=== PATIENT | female | born 1965 | race Caucasian/White ===

== ENCOUNTER 2021-04-16 19:20 | Inpatient (IN) | payer OTHER, SELFPAY ==
[2021-04-16 19:31] VITALS: BP 198/140; PULSE 110; RESP 18; TEMP 37.2; O2SAT 95; BMI 31.2
--- NOTE | 2021-04-16 19:37 | ED_ITS ---
HPI - Psych General: Chief Complaint: Psychiatric Symptoms Stated Complaint: [facility] transport Time Seen by Provider: 04/16/21 19:36 Source: patient and EMS Mode of arrival: EMS Limitations: no limitations History of Present Illness: HPI Narrative: Patient is a 55-year-old female who presents to ED today after being brought by police on a 96-hour hold. Patient tells me her and her got into a verbal altercation earlier this evening. She states she was on the phone with her [id number] who became concerned and called the police. Patient states upon a arrival her had already left the home and states she does not know why the police brought her here. Patient tells me there was no drug or alcohol use. She states she did not make homicidal or suicidal statements. She states she does not know why she is here and wants to go home. Affidavit from police sergeant reviewed and apparently patient was arrested for a DWI earlier today. She was held in [facility] for 7 hours and discharged home. Affidavit states patient immediately began drinking again and contacted her brother telling him vaibhav stating she was going to shoot herself. She made statements that she had keys to her gun safe. She apparently also contacted her supervisor throwing department. Patient is denying all of this and again wants to go home. Associated symptoms: Deny auditory hallucinations, visual hallucinations, depression, homicidal ideation or suicidal ideation Review of Systems Const: Denies: fever(s) or chills Card: Denies: chest pain, palpitations, lightheadedness or syncope Resp: Denies: dyspnea GI: Denies: abdominal pain, nausea, vomiting or diarrhea Skin/Breast: Denies: rash Neuro: Denies: headache(s) Psych: Denies: anxiety, depression, visual hallucinations, auditory hallucinations, suicidal ideation or homicidal ideation Physical Exam Const: COMMON NORMALS: no acute distress, patient oriented x3, no limitations and alert EXAM LIMITATIONS: other limitations (appears slightly intoxicated) GENERAL APPEARANCE: cooperative ORIENTATION/CONSCIOUSNESS: Yes awake, Yes oriented to person, Yes oriented to place and Yes oriented to time Resp: COMMON NORMALS: normal respiratory effort and clear to auscultation bilaterally AUSCULTATION: clear to auscultation bilaterally Cardio: COMMON NORMALS: regular rate and regular rhythm RATE: regular rate RHYTHM: regular rhythm Neuro: JUSTO COMA SCALE: document GCS findings Justo coma scale eye opening: Spontaneous [place] coma scale verbal response: Orientated Justo coma scale motor response: Obey commands Justo coma scale total score: 15 COMMON NORMALS: patient oriented x3, CN's II-XII intact bilaterally, moves all extremities, no focal motor deficits, no sensory deficits noted and gait normal SENSORIUM/ORIENTATION: Yes alert, Yes oriented to person, Yes oriented to place and Yes oriented to time Psych: COMMON NORMALS: mental status grossly normal, Normal thought process present, cooperative, normal affect, speech normal, activity/motor behavior normal, denies hallucinations, denies homicidal ideation and denies suicidal ideation APPEARANCE: Yes grossly normal ATTITUDE: Yes calm ACTIVITY/MOTOR BEHAVIOR: Yes appropriate eye contact SPEECH: Yes normal speech MOOD & AFFECT: Yes euthymic mood THOUGHT PROCESS: Normal thought process present THOUGHT CONTENT: Yes Normal thought content present ATTENTION/CONCENTRATION: Yes attention grossly intact and Yes concentration grossly intact MEMORY/COGNITION: Yes memory grossly intact and Yes cognition grossly intact INSIGHT: Fair insight present (Psych) JUDGEMENT: Fair judgement present (Psych) Course Consultations: Consultation #1: Dr. Campos-accepts patient to NPU. Vital Signs: Vital signs: Vital Signs Temperature 98.9 F 04/16/21 19:31 Pulse Rate 109 H 04/16/21 22:52 Respiratory Rate 18 04/16/21 22:52 Blood Pressure 195/118 04/16/21 22:52 Pulse Oximetry 93 04/16/21 22:52 MDM - Psych MDM Narrative: Medical decision making narrative: Patient here on a 96-hour hold. Labs are fairly unremarkable. She does have an elevated glucose of 212. Most likely patient is an undiagnosed diabetic. She has nonspecific elevations to her LFTs. My suspicion would be for a fatty liver or secondary to her alcohol use-patient does not endorse how frequently she uses. Patient was very hypertensive upon arrival at 198/140. She states she does take BP medications and took them this morning. Blood pressure down to 178/101 during my examination. She is completely asymptomatic. There is no need to treat this acutely from the ED. Recommend BP log and follow-up with primary care so they may adjust medications accordingly. Case discussed with Dr. Campos who will admit to NPU. Lab Data: Labs: Lab Results 04/16/21 04/16/21 Range/Units 21:07 21:07 WBC 7.0 (4.0-10.0) 10^3/ uL RBC 4.83 (4.1-5.3) 10^6/u L Hgb 15.4 H (11.5-15.3) g/dL Hct 47.4 H (37.0-47.0) % MCV 98.1 (81-99) fL MCH 31.9 (28.0-34.0) pg MCHC 32.5 (30.0-36.0) g/dL RDW 13.8 (12.1-15.1) % Plt Count 270 (130-400) 10^3/c mm MPV 9.7 (7.4-10.4) fL Neut % (Auto) 50.9 % Lymph % (Auto) 39.7 % Cross % (Auto) 6.7 % Eos % (Auto) 0.4 % Baso % (Auto) 1.0 % Neut # (Auto) 3.54 (1.8-7.7) 10^3/u L Lymph # (Auto) 2.8 (0.8-4.8) 10^3/u L Cross # (Auto) 0.5 (0.2-0.9) 10^3/u L Eos # (Auto) 0.0 (0.0-0.8) 10^3/u L Baso # (Auto) 0.1 (0.0-0.1) 10^3/u L Nucleated RBC % (a uto) 0 % Nucleated RBCs # 0.0 /100WBC Sodium 139 (136-145) mmol/L Potassium 3.7 (3.5-5.1) mmol/L Chloride 101 (98-107) mmol/L Carbon Dioxide 23 (22-29) mmol/L Anion Gap 18.7 (5-19) BUN 12 (6-20) mg/dL Creatinine 0.4 L (0.5-0.9) mg/dL GFR Calculation 165.7 H (90-130) mL/min Glucose 212 H (65-115) mg/dL Calculated Osmolal ity 294 (285-295) mOsm/k g Calcium 8.2 L (8.5-10.5) mg/dL Total Bilirubin 0.2 (0.15-1.2) mg/dL AST 70 H (0-32) U/L ALT 75 H (0-33) U/L Alkaline Phosphata se 99 (35-105) IU/L Total Protein 7.0 (6.6-8.7) g/dL Albumin 3.8 (3.5-5.2) g/dL Globulin 3.2 (1.3-4.6) g/dL Salicylates < 0.3 L (3-10) mg/dL Acetaminophen < 5.0 L (10-30) ug/mL Ethyl Alcohol 219 H (0-10) mg/dL Discharge Plan Discharge Patient Disposition: Admitted As Inpatient Admit Provider: Todd Campos Clinical Impression: Suicidal ideation, Involuntary commitment, Acute alcohol intoxication, Hypertension, uncontrolled Condition: Stable Coding Level of Care Code ED Child And Family Services Worker for Elida Fwkirill Exam Detailed
[2021-04-16 21:17] LABS: Basophils # 0.1 10^3/uL (0.0-0.1); Eosinophils % 0.4 %; Hematocrit 47.4 % (37.0-47.0); Hemoglobin 15.4 g/dL (11.5-15.3); Lymphocytes # 2.8 10^3/uL (0.8-4.8); Lymphocytes % 39.7 %; Mean Corpuscular HGB Conc 32.5 g/dL (30.0-36.0); Mean Corpuscular Hemoglobin 31.9 pg (28.0-34.0); Mean Corpuscular Volume 98.1 fL (81-99); Mean Platelet Volume 9.7 fL (7.4-10.4); Monocytes # 0.5 10^3/uL (0.2-0.9); Monocytes % 6.7 %; Neutrophils # 3.54 10^3/uL (1.8-7.7); Neutrophils % 50.9 %; Nucleated Red Blood Cells % 0 %; Platelet Count 270 10^3/cmm (130-400); Red Blood Count 4.83 10^6/uL (4.1-5.3); Red Cell Distribution Width 13.8 % (12.1-15.1)
[2021-04-16 21:37] LABS: Alanine Aminotransferase 75 U/L (0-33); Albumin Level 3.8 g/dL (3.5-5.2); Alcohol Level 219 mg/dL (0-10); Alkaline Phosphatase 99 IU/L (35-105); Anion Gap 18.7 (5-19); Aspartate Amino Transferase 70 U/L (0-32); Blood Urea Nitrogen 12 mg/dL (6-20); Calcium 8.2 mg/dL (8.5-10.5); Carbon Dioxide 23 mmol/L (22-29); Chloride 101 mmol/L (98-107); Globulin 3.2 g/dL (1.3-4.6); Glomerular Filtration Rate 165.7 mL/min (90-130); Glucose 212 mg/dL (65-115); Osmolality Calculated 294 mOsm/kg (285-295); Potassium 3.7 mmol/L (3.5-5.1); Sodium 139 mmol/L (136-145); Total Bilirubin 0.2 mg/dL (0.15-1.2)
[2021-04-16 21:39] LABS: Acetaminophen < 5.0 ug/mL (10-30); Salicylate < 0.3 mg/dL (3-10)
[2021-04-16 21:53] VITALS: BP 178/101; PULSE 97; RESP 18
[2021-04-16] MEDS: ibuprofen 200 mg Tablet 400 MG PO (22:09)
[2021-04-16 22:37] VITALS: PULSE 100; RESP 18; O2SAT 99
[2021-04-16 22:52] VITALS: BP 195/118; PULSE 109; RESP 18; O2SAT 93
[2021-04-16 23:01] VITALS: BP 193/143; PULSE 106; RESP 18; TEMP 36.5; O2SAT 93
[2021-04-16] MEDS: hyDROXYzine 25 mg Capsule 50 MG PO (23:51)
[2021-04-16] MEDS: trazodone 50 mg Tablet PO (23:51)
[2021-04-17 01:06] LABS: Amphetamines Screen Urine Negative (Negative); Barbiturates Screen Urine Negative (Negative); Benzodiazepines Screen Urine Negative (Negative); Cocaine Screen Urine Negative (Negative); Opiate Screen Urine Negative (Negative); PCP Screen Urine Negative (Negative); THC Screen Urine Negative (Negative)
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
[2021-04-17 06:00] VITALS: BP 200/104; PULSE 109; RESP 19; TEMP 37.5; O2SAT 93
[2021-04-17] MEDS: pantoprazole DR 40 mg Tablet PO (08:22)
[2021-04-17] MEDS: fluoxetine 10 mg Capsule PO (08:22)
[2021-04-17] MEDS: buPROPion SR (12 HR) 150 mg Tablet PO (08:22)
--- NOTE | 2021-04-17 08:24 | PC.NUTR ---
Nutrition assessment triggered d/t MSt score of 4. Possible weight loss. Pt currently on Cardiac diet r/t HTN. Glucose 212 noted, may benefit from consistent carb guidelines in diet, as well as nutrition education when appropriate. Recommend monitoring glucose daily, and obtaining HgbA1C if appropriate to evaluate or DM. See full RD assessment for further details.
--- NOTE | 2021-04-17 09:31 | P.HP_ITS ---
Providers/Chief Complaint Admitting Physician: Todd Campos MD Primary Care Provider: Jolynn Kauffman APRN Chief Complaint: [facility] transport HPI NPU History of Present Illness Isabel Machado is a 55 year old female who was brought by police on a 96-hour hold to the ED yesterday evening after it was reported she made serious suicidal statements to several different people. The ED note from last night states: Patient is a 55-year-old female who presents to ED today after being brought by police on a 96-hour hold. Patient tells me her and her got into a verbal altercation earlier this evening. She states she was on the phone with her [id number] who became concerned and called the police. Patient states upon a arrival her had already left the home and states she does not know why the police brought her here. Patient tells me there was no drug or alcohol use. She states she did not make homicidal or suicidal statements. She states she does not know why she is here and wants to go home. Clifford from police captain reviewed and apparently patient was arrested for a DWI earlier today. She was held in halfway for 7 hours and discharged home. Affidavit states patient immediately began drinking again and contacted her brother telling him vaibhav stating she was going to shoot herself. She made statements that she had keys to her gun safe. She apparently also contacted her data technician. Patient is denying all of this and again wants to go home. As she did in the ED, the patient denies all of what is reported in the affidavit and 96-hour hold petition, and during this interview she minimized psychiatric symptoms. She does admit to having been depressed recently and was started on Prozac and Wellbutrin by her primary care physician 2 weeks ago. She says this is the first time she has taken psychiatric medications. She has no history of psychiatric hospitalization or therapy either. Though she describes having been depressed, she denies any recent history of insomnia or hypersomnia, appetite changes, poor energy, motivation, concentration, or feelings of helplessness, hopelessness, or worthlessness. She says she has not ever had passive or active suicidal ideation. She says she has a lot to live for, including her friends, children, and 5 grandchildren. She denies ever having had psychotic symptoms. She denies auditory and visual hallucinations and paranoid delusions. The patient says she has been trying not to drink, and reports being sober from November through February of this year. She says alcohol is something to turn to because I am depressed. She says she does not want to rely on alcohol to solve her problems. She says she drank 6 beers and 4 shots of whiskey either yest erday or the day before. She is reluctant to discuss quantity of alcohol use during other time periods. She says she has had alcohol withdrawal symptoms in the past that included shaking and sweating, but denies delirium tremens symptoms such as seizures or hallucinations. She denies any history of drug use. She does smoke 1/2 pack of cigarettes per day. The patient does say that she got a DWI yesterday. I ask the circumstances, she said I just ran out to the store for a minute. She says she has a court date on April 28, 2021. She says she got her first DUI a number of years ago, and this is the second. Psychiatric history: As above. Substance use history: As above. Family history: Patient denies mental health or addiction issues on either side of the family and denies suicide attempts or completions in the family. She says her mother has had breast cancer. Psychosocial history: The patient says she was born in [facility] but graduated from high school in [place], where she had gone to live with her older sister. She now lives in [place], [place] with her of 38 years. She says they have 2 grown kids. 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 Her works for [employer] engines. Legal history: DWI Medical history: Hypertension: She says she was recently switched from lisinopril to Cardura, which has been helpful in controlling her blood pressure. Her doctor has noted that she has hyperglycemia, which she is trying to control with diet at present. Review of Systems General: Reports: 10 or more systems reviewed and unremarkable except in HPI and below Meds NPU Home Medications Medication Instructions Recorded Confirmed Last Taken Type apixaban [Eliquis] 5 mg PO BID 04/17/21 04/17/21 Unknown History bupropion HCl 150 mg PO BID 04/17/21 04/17/21 Unknown History diltiazem HCl 180 mg PO DAILY 04/17/21 04/17/21 Unknown History fluoxetine 10 mg PO DAILY 04/17/21 04/17/21 Unknown History omeprazole 20 mg PO DAILY 04/17/21 04/17/21 Unknown History Allergies Allergy/AdvReac Type Severity Reaction Status Date / Time No Known Allergies Allergy Verified 04/16/21 19:35 Mental Status Exam MSE Comments: I met with the patient in in her room. She was wearing scrubs and did not appear to have performed personal hygiene this morning yet. She was guarded with the exam. She was somewhat agitated, irritated about being in the hospital, minimized any difficulty whatsoever, and made poor eye contact. She had psychomotor agitation no tremor. Speech is at a regular rate and rhythm, normal volume, not pressured Alert, oriented to person, place, time (within 2 days), situation Attention and concentration were intact. Able to spell the word WORLD correctly forwards and backwards. Memory is fairly intact. Remembers 3/3 words immediately and 2/3 at 3 minutes. She knows the names of the past 3 presidents. She says that her mood is fine, and denies feeling depressed. This is in spite of the fact that she was recently started on antidepressants and does not feel they have taken effect yet.. Affect is irritable and anxious. Thought process, linear but with inconsistencies Thought content: Denies auditory visual hallucinations, no delusions noted. Denies suicidal and homicidal ideation. Insight and judgment appear to be limited by minimizing symptoms Vitals/I&O/Wt Last Vital Signs Temp 99.5 F 04/17/21 06:00 Pulse 109 H 04/17/21 06:00 Resp 19 H 04/17/21 06:00 BP 200/104 04/17/21 06:00 Pulse Ox 93 04/17/21 06:00 Weight last 48 hrs Weight 72.575 kg Data NPU : 04/16/21 21:07 04/16/21 21:07 A&P Assessment and plan (1) Suicidal ideation: Status: Acute (2) Depression: Status: Acute (3) Involuntary commitment: Status: Acute (4) Acute alcohol intoxication: Status: Acute Qualifiers: Complication of substance-induced condition: uncomplicated Qualified Code(s): F10.920 - Alcohol use, unspecified with intoxication, uncomplicated (5) Hypertension, uncontrolled: Status: Acute Additional A&P Information Isabel Machado is a 55 year old female who was brought by police on a 96-hour hold to the ED yesterday evening after it was reported she made serious suicidal statements to several different people. The ED note from last night states: Patient is a 55-year-old female who presents to ED today after being brought by police on a 96-hour hold. Patient tells me her and her got into a verbal altercation earlier this evening. It is reported that she contacted her brother telling him goodbye and that she was going to shoot herself, and reportedly made similar statements to her data technician. She denies the above and min imizes all symptoms, even though she received a DWI yesterday. 1. Continue current medication. 2. Continue every 15 minute checks for safety. 3. Encourage individual, group and milieu therapies. 4. Encourage sober living treatment after discharge at the highest level of care to which he is willing to commit. 5. Obtain collateral information from family about the patient's behavior prior to admission, to include in disposition decision make. Involuntary Hold Information 96 Hour Hold: 96 Hour Involuntary Admission: Yes 96 Hour Hold Ending Date: 04/22/21 96 Hour Hold Ending Time: 22:40 Attestations NPU Medical Necessity Statement*: Psychiatric hospitalization is medically necessary to prevent access to lethal means, to reevaluate medication, and to coordinate a safe discharge. Patient will be in the hospital for over 2 midnights. Likely length of stay is 3 to 5 days. Coding Level of Care Code Acute Furnace Erector for [facility] Diagnoses Suicidal ideation R45.851 Depression F32.9 Involuntary commitment Z04.6 Acute alcohol intoxication F10.920 Complication of substance-induced condition: uncomplicated Hypertension, uncontrolled I10
[2021-04-17] MEDS: acetaminophen 325 mg Tablet 650 MG PO (11:48)
--- NOTE | 2021-04-17 12:03 | PM.NDC ---
Diagnoses at Discharge Discharge Diagnosis (1) Suicidal ideation: Status: Resolved (2) Depression: Status: Acute (3) Involuntary commitment: Status: Resolved (4) Acute alcohol intoxication: Status: Resolved Qualifiers: Complication of substance-induced condition: uncomplicated Qualified Code(s): F10.920 - Alcohol use, unspecified with intoxication, uncomplicated (5) Hypertension, uncontrolled: Status: Acute Reason for Visit Reason for Visit: [facility] transport Brief History: Isabel Machado is a 55 year old female who was brought by police on a 96-hour hold to the ED yesterday evening after it was reported she made serious suicidal statements to several different people. The ED note from last night states: Patient is a 55-year-old female who presents to ED today after being brought by police on a 96-hour hold. Patient tells me her and her got into a verbal altercation earlier this evening. She states she was on the phone with her [id number] who became concerned and called the police. Patient states upon a arrival her had already left the home and states she does not know why the police brought her here. Patient tells me there was no drug or alcohol use. She states she did not make homicidal or suicidal statements. She states she does not know why she is here and wants to go home. Clifford from police communications dispatcher reviewed and apparently patient was arrested for a DWI earlier today. She was held in skilled nursing for 7 hours and discharged home. Affidavit states patient immediately began drinking again and contacted her brother telling him gagee stating she was going to shoot herself. She made statements that she had keys to her gun safe. She apparently also contacted her cinder crusher operator. Patient is denying all of this and again wants to go home. As she did in the ED, the patient denies all of what is reported in the affidavit and 96-hour hold petition, and during this interview she minimized psychiatric symptoms. She does admit to having been depressed recently and was started on Prozac and Wellbutrin by her primary care physician 2 weeks ago. She says this is the first time she has taken psychiatric medications. She has no history of psychiatric hospitalization or therapy either. Though she describes having been depressed, she denies any recent history of insomnia or hypersomnia, appetite changes, poor energy, motivation, concentration, or feelings of helplessness, hopelessness, or worthlessness. She says she has not ever had passive or active suicidal ideation. She says she has a lot to live for, including her friends, children, and 5 grandchildren. She denies ever having had psychotic symptoms. She denies auditory and visual hallucinations and paranoid delusions. The patient says she has been trying not to drink, and reports being sober from November through February of this year. She says alcohol is something to turn to because I am depressed. She says she does not want to rely on alcohol to solve her problems. She says she drank 6 beers and 4 shots of whiskey either yesterday or the day before. She is reluctant to discuss quantity of alcohol use during other time periods. She says she has had alcohol withdrawal symptoms in the past that included shaking and sweating, but denies delirium tremens symptoms such as seizures or hallucinations. She denies any history of drug use. She does smoke 1/2 pack of cigarettes per day. The patient does say that she got a DWI yesterday. I ask the circumstances, she said I just ran out to the store for a minute. She says she has a court date on April 28, 2021. She says she got her first DUI a number of years ago, and this is the second. Hospital Course Hospital Course She was admitted to the neuropsychiatric unit for definitive treatment of these issues. On the unit she slowly acclimated to the individual, group and milieu therapies. There were some mild psychotic symptoms present initially which resolved with the medication being restarted. She was receptive to treatment team recommendations and showed modest improvement and was able to contract for safety prior to discharge. During the hospitalization, patient had routine laboratory studies which were within normal limits except for few outliers. Additionally there was a general medical evaluation which was also within normal limits and revealed no new acute processes. Discharge Summary: At the time of discharge, psychosis and lethality were denied. Mood and anxiety were well managed. Patient endorsed a plan to avoid all drugs of abuse and follow-up with the aftercare recommendations of the treatment team. Patient was evaluated and deemed to be absent credible lethality, and had achieved the maximum benefit from an inpatient hospitalization, so was discharged. Involuntary Hold Information 96 Hour Hold: 96 Hour Involuntary Admission: Yes 96 Hour Hold Ending Date: 04/22/21 96 Hour Hold Ending Time: 22:40 Mental Status Exam MSE Comments: The patient made good eye contact and was cooperative and open to the exam. No psychomotor agitation or retardation. Speech was had a regular rate and rhythm without pressure. Alert and oriented to person, place, time, and situation. Attention and concentration were intact to exam Memory was fairly good to exam. Mood is improved without depression and anxiety. Affect is brighter. Thought process: Logical and goal directed. No racing thoughts or flight of ideas. Thought content: Denies auditory and visual hallucinations. There are no delusions noted. No suicidal or homicidal ideation. Has future-oriented goals. Insight and judgment are improved and adequate. Discharge Data Data Completed and Pending: Labs from last 24 hours 04/16/21 04/16/21 04/16/21 21:07 21:07 19:45 WBC 7.0 RBC 4.83 Hgb 15.4 H Hct 47.4 H MCV 98.1 MCH 31.9 MCHC 32.5 RDW 13.8 Plt Count 270 MPV 9.7 Neut % (Auto) 50.9 Lymph % (Auto) 39.7 [place] % (Auto) 6.7 Eos % (Auto) 0.4 Baso % (Auto) 1.0 Neut # (Auto) 3.54 Lymph # (Auto) 2.8 [place] # (Auto) 0.5 Eos # (Auto) 0.0 Baso # (Auto) 0.1 Nucleated RBC % (a uto) 0 Nucleated RBCs # 0.0 Sodium 139 Potassium 3.7 Chloride 101 Carbon Dioxide 23 Anion Gap 18.7 BUN 12 Creatinine 0.4 L GFR Calculation 165.7 H Glucose 212 H Calculated Osmolal ity 294 Calcium 8.2 L Total Bilirubin 0.2 AST 70 H ALT 75 H Alkaline Phosphata se 99 Total Protein 7.0 Albumin 3.8 Globulin 3.2 Salicylates < 0.3 L Urine Opiates Scre en Negative Acetaminophen < 5.0 L Ur Barbiturates Sc reen Negative Ur Phencyclidine S crn Negative Ur Amphetamines Sc reen Negative U Benzodiazepines Scrn Negative Urine Cocaine Scre en Negative U Marijuana (THC) Screen Negative Ethyl Alcohol 219 H Vitals: Last Vital Signs Temp 99.5 F 04/17/21 06:00 Pulse 109 H 04/17/21 06:00 Resp 19 H 04/17/21 06:00 BP 200/104 04/17/21 06:00 Pulse Ox 93 04/17/21 06:00 Discharge Plan Discharge Patient Disposition: Home Condition: Stable Prescriptions: Continued bupropion HCl 150 mg Tablet Sustained-Release 12 Hr 150 mg PO BID RF: 0 fluoxetine 10 mg Capsule 10 mg PO DAILY RF: 0 Eliquis 5 mg Tablet 5 mg PO BID RF: 0 omeprazole 20 mg Capsule,Delayed Release(Dr/Ec) 20 mg PO DAILY RF: 0 diltiazem HCl 180 mg Tablet Extended Release 24 Hr 180 mg PO DAILY RF: 0 Discharge Orders: Discharge Order (Routine); Ordered 04/17/21 Ordered By: Todd Campos Referrals: Jolynn Kauffman APRN [Primary Care Provider] - Discharge Diet: Advance as tolerated and Usual diet Discharge Activity: Resume usual activity Patient Instructions: Opioid Safety Discharge Attestations NPU Time Spent in Discharge Care*: less than 30 min Specific Discharge Activities: Specific discharge activities: educating patient, educating and/or supporting family/caregiver and discussing with pcp/other providers Status at Discharge: Cognitive status at discharge: cognitively intact, Behavioral status at discharge: can be uncooperative, Functional status at discharge: independent ambulation Overall status at discharge: patient is back to baseline Coding Level of Care Code Acute Chg FW DC note Diagnoses Suicidal ideation R45.851 Depression F32.9 Involuntary commitment Z04.6 Acute alcohol intoxication F10.920 Complication of substance-induced condition: uncomplicated Hypertension, uncontrolled I10
[2021-04-17 12:15] VITALS: BP 200/104; PULSE 109; RESP 19; TEMP 37.5; O2SAT 93
== END 2021-04-17 13:35 | disposition home or self-care (01) | DRG 881 ==
LOC: ER 22:39 → NP 04-17 01:06
PROVIDERS: Admitting Provider Psychiatry & Neurology Child & Adolescent Psychiatry; Emergency Provider Physician Assistant; PCP Nurse Practitioner Family; Visit Provider Psychiatry & Neurology Child & Adolescent Psychiatry
DX: F32.9 Major depressive disorder, single episode, unspecified (principal); R45.851 Suicidal ideations; F10.94 Alcohol use, unspecified with alcohol-induced mood disorder; F10.929 Alcohol use, unspecified with intoxication, unspecified; I10 Essential (primary) hypertension; F17.210 Nicotine dependence, cigarettes, uncomplicated; Z65.3 Problems related to other legal circumstances
CPT/HCPCS: 80053; 80306; 80307; 85025; 99285

== ENCOUNTER 2021-12-07 20:42 | Inpatient (IN) | payer OTHER, SELFPAY ==
[2021-12-07 20:51] VITALS: BP 139/92; PULSE 94; RESP 20; TEMP 36.8; O2SAT 97; BMI 31.2
--- NOTE | 2021-12-07 22:30 | ECG_ITS ---
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 Measurements Intervals [place] Rate: 92 P: -25 FL: 146 QRS: -8 QRSD: 96 T: 76 QT: 371 QTc: 460 Interpretive Statements SINUS RHYTHM WITH FREQUENT VENTRICULAR PREMATURE COMPLEXES WITH FREQUENT SUPRAVENTRICULAR PREMATURE COMPLEXES ST DEVIATION AND MODERATE T-WAVE ABNORMALITY, CONSIDER LATERAL ISCHEMIA [-0.1+ mV T-WAVE IN I/aVL/V5/V6] ST DEVIATION AND MODERATE T-WAVE ABNORMALITY, CONSIDER INFERIOR ISCHEMIA [-0.1+ mV T-WAVE IN II/aVF] No previous ECG available for comparison Electronically Signed On 12-09-2021 9:01:27 CDT by Julius Saldaña M.D. [email or web address]
--- NOTE | 2021-12-07 22:30 | XRR_ITS ---
PROCEDURE INFORMATION: Exam: XR Chest Exam date and time: 12/07/2021 10:55 PM Age: 56 years old Clinical indication: Other: AMS; Additional info: Altered mental status TECHNIQUE: Imaging protocol: XR of the chest. Views: 1 view. COMPARISON: No relevant prior studies available. FINDINGS: Lungs: Unremarkable. No consolidation. Pleural spaces: Unremarkable. No pleural effusion. No pneumothorax. Heart/Mediastinum: Unremarkable. No cardiomegaly. Bones/joints: No emergent findings identified. XR/XR chest 1V portable [id number] IMPRESSION: 1. No acute findings.
--- NOTE | 2021-12-07 23:23 | ED_ITS ---
HPI - General Adult General: Chief complaint: General Medical Stated complaint: MHE Time Seen by Provider: 12/07/21 22:16 Source: patient History of Present Illness: 56-year-old female who states she has been drinking heavily for the last several days. She notes that she has not had any solid food. Her kids came to get her this evening, and asked her to get help. She denies any suicidal or homicidal ideation. She simply wants to quit drinking. She does state that she has anxiety. She also states she is thirsty. Onset (ago): day(s) Radiation: non-radiation Quality: other Pain Consistency: other Relieving factors: other Associated symptoms: Reports confusion, decreased appetite, nausea and weakness (Generalized); Deny chest pain, cough, dyspnea, fevers/chills, headache(s), short of breath or vomiting Review of Systems Const: Denies: fever(s) Card: Denies: chest pain Resp: Denies: dyspnea GI: Reports: nausea; Denies: vomiting Neuro: Reports: confusion; Denies: headache(s) Psych: Reports: anxiety PFSH ED PFSH: Medical History (Updated 12/08/21 @ 03:40 by Robby Wiggins MD) Atrial fibrillation Depression Hypertension, uncontrolled Type 2 diabetes mellitus Surgical History (Updated 12/08/21 @ 03:34 by Robby Wiggins MD) History of cholecystectomy Family History (Updated 12/08/21 @ 03:34 by Robby Wiggins MD) Other CAD (coronary artery disease) Social History (Updated 12/08/21 @ 03:35 by Robby Wiggins MD) Smoking and tobacco status: current every day smoker Alcohol intake: current Desire information about alcohol rehabilitation?: Yes Substance/Drug Use: never Physical Exam Const: GENERAL APPEARANCE: cooperative, lethargic and frail appearing (mildly) NUTRITIONAL APPEARANCE: overweight ORIENTATION/CONSCIOUSNESS: Yes lethargic HENMT: COMMON NORMALS: normocephalic, atraumatic and Normal external nose present HEAD & SCALP: normocephalic and atraumatic FACE & SINUS: normal facial exam NOSE: Normal external nose present Eye: COMMON NORMALS: Equal, round and reactive pupils present and EOMs intact bilaterally PUPIL: Yes Equal, round and reactive pupils present Chest: COMMONS NORMALS: normal inspection of the chest Resp: COMMON NORMALS: normal respiratory effort, No use of accessory muscles and clear to auscultation bilaterally AUSCULTATION: clear to auscultation bilaterally Neuro: SENSORIUM/ORIENTATION: Yes lethargic Course Vital Signs: Vital signs: Vital Signs Temperature 98.2 F 12/07/21 20:51 Pulse Rate 89 12/08/21 02:36 Respiratory Rate 17 12/08/21 02:36 Blood Pressure 162/103 12/08/21 02:36 Pulse Oximetry 96 12/08/21 02:36 [facility] - General Adult Medical Decision Making White blood cell count is 15.6. Blood glucose is 584 with a bicarbonate of 26. She is not acidotic. Her potassium is 2.3, sodium is 126, likely as a result of the elevated glucose. Urine ketones are negative. No UTI by urinalysis. CT is nonacute. Liver enz ymes are elevated, likely a result of alcohol. CT is nonacute. She has gotten 2 L of fluid, potassium. Insulin drip not started, as serum ketones are negative, she is not acidotic, and her potassium is already quite low. She will go to the icu. Lab Data : 12/07/21 23:40 12/07/21 23:40 Radiology Impressions Chest X-Ray 12/07/21 22:30 IMPRESSION: 1. No acute findings. Abdomen/Pelvis CT 12/08/21 00:58 IMPRESSION: 1. Fatty liver. 2. Additional, nonemergent findings as above. Laboratory Results WBC 15.6 10^3/uL (4.0-10.0) H 12/07/21 23:40 RBC 4.13 10^6/uL (4.1-5.3) 12/07/21 23:40 Hgb 13.1 g/dL (11.5-15.3) 12/07/21 23:40 Hct 38.7 % (37.0-47.0) 12/07/21 23:40 MCV 93.7 fl (81-99) 12/07/21 23:40 MCH 31.7 pg (28.0-34.0) 12/07/21 23:40 MCHC 33.9 g/dL (30.0-36.0) 12/07/21 23:40 RDW 14.6 % (12.1-15.1) 12/07/21 23:40 Plt Count 177 10^3/cmm (130-400) 12/07/21 23:40 MPV 10.7 fL (7.4-10.4) H 12/07/21 23:40 Neut % (Auto) 87.5 % 12/07/21 23:40 Lymph % (Auto) 8.1 % 12/07/21 23:40 [place] % (Auto) 2.8 % 12/07/21 23:40 Eos % (Auto) 0.0 % 12/07/21 23:40 Baso % (Auto) 0.3 % 12/07/21 23:40 Neut # (Auto) 13.63 10^3/uL (1.8-7.7) H 12/07/21 23:40 Lymph # (Auto) 1.3 10^3/uL (0.8-4.8) 12/07/21 23:40 [place] # (Auto) 0.4 10^3/uL (0.2-0.9) 12/07/21 23:40 Eos # (Auto) 0.0 10^3/uL (0.0-0.8) 12/07/21 23:40 Baso # (Auto) 0.0 10^3/uL (0.0-0.1) 12/07/21 23:40 Nucleated RBC % (auto) 0.4 % 12/07/21 23:40 Nucleated RBCs # 0.1 /100WBC 12/07/21 23:40 PT 14.40 SECONDS (12.1-14.9) 12/08/21 00:19 INR 1.09 (0.8-1.2) 12/08/21 00:19 Specimen Type Arterial 12/08/21 00:55 Sample Site Radial, left 12/08/21 00:55 ABG pH 7.45 (7.35-7.45) 12/08/21 00:55 ABG pCO2 41.7 mmHg (35-45) 12/08/21 00:55 ABG pO2 53.1 mmHg (80.0-100.0) L 12/08/21 00:55 ABG HCO3 29.1 mmol/L (22-26) H 12/08/21 00:55 ABG Base Excess 4.6 mmol/L (-2.0-2.0) H 12/08/21 00:55 Jarad Test Pos 12/08/21 00:55 Hematocrit 38.3 % (37-47) 12/08/21 00:55 O2 Delivery Device Room air 12/08/21 00:55 Wine Specialist ID Buttr 12/08/21 00:55 Sodium 126 mmol/L (136-145) L 12/07/21 23:40 Potassium 2.3 mmol/L (3.5-5.1) L* 12/07/21 23:40 Chloride 72 mmol/L (98-107) L 12/07/21 23:40 Carbon Dioxide 26 mmol/L (22-29) 12/07/21 23:40 Anion Gap 30.3 (5-19) H 12/07/21 23:40 BUN 7 mg/dL (6-20) 12/07/21 23:40 Creatinine 0.8 mg/dL (0.5-0.9) 12/07/21 23:40 GFR Calculation 74.2 mL/min (90-130) L 12/07/21 23:40 Glucose 584 mg/dL (65-115) H* 12/07/21 23:40 POC Glucose 458 mg/dL (70-110) H 12/08/21 03:01 Calculated Osmolality 287 mOsm/kg (285-295) 12/07/21 23:40 Calcium 8.6 mg/dL (8.5-10.5) 12/07/21 23:40 Total Bilirubin 2.5 mg/dL (0.15-1.2) H 12/07/21 23:40 AST 183 U/L (0-32) H 12/07/21 23:40 ALT 115 U/L (0-33) H 12/07/21 23:40 Alkaline Phosphatase 398 IU/L (35-105) H 12/07/21 23:40 Total Protein 6.8 g/dL (6.6-8.7) 12/07/21 23:40 Albumin 3.3 g/dL (3.5-5.2) L 12/07/21 23:40 Globulin 3.5 g/dL (1.3-4.6) 12/07/21 23:40 Urine Color Yellow (Yellow) 12/08/21 00:19 Urine Appearance Clear (CLEAR) 12/08/21 00:19 Urine pH 6.5 (5-7) 12/08/21 00:19 Ur Specific [place] 1.005 (1.005-1.030) 12/08/21 00:19 Urine Protein Neg (Negative) 12/08/21 00:19 Urine Glucose (UA) 4+ (Normal) H 12/08/21 00:19 Urine Ketones Negative (Negative) 12/08/21 00:19 Urine Blood 2+ (Negative) H 12/08/21 00:19 Urine Nitrate Negative (Negative) 12/08/21 00:19 Urine Bilirubin Neg (Negative) 12/08/21 00:19 Urine Urobilinogen 1 mg/dL (Negative) H 12/08/21 00:19 Ur Leukocyte Esterase Trace (Negative) H 12/08/21 00:19 Urine RBC 10-15 /hpf (0-2) H 12/08/21 00:19 Urine WBC 15-25 /hpf (0-5) H 12/08/21 00:19 Ur Squamous Epith Cells 15-25 /hpf (0-5) H 12/08/21 00:19 Amorphous Sediment Not Reportable 12/08/21 00:19 Urine Bacteria 2+ /hpf (NONE) H 12/08/21 00:19 Urine Yeast Trace /hpf 12/08/21 00:19 Salicylates < 0.3 mg/dL (3-10) L 12/07/21 23:40 Urine Opiates Screen Negative ng/mL (Negative) 12/08/21 00:15 Acetaminophen < 5.0 ug/mL (10-30) L 12/07/21 23:40 Ur Barbiturates Screen Negative ng/mL (Negative) 12/08/21 00:15 Ur Phencyclidine Scrn Negative ng/mL (Negative) 12/08/21 00:15 Ur Amphetamines Screen Negative ng/mL (Negative) 12/08/21 00:15 U Benzodiazepines Scrn Negative ng/mL (Negative) 12/08/21 00:15 Urine Cocaine Screen Negative ng/mL (Negative) 12/08/21 00:15 U Marijuana (THC) Screen Negative ng/mL (Negative) 12/08/21 00:15 Ethyl Alcohol 105 mg/dL (0-10) H 12/07/21 23:40 Serum Ketones Negative (Negative) 03/26/22 23:40 Discharge Plan Discharge Patient Disposition: Admitted As Inpatient Admit Provider: Robby Wiggins Clinical Impression: Alcohol withdrawal, Acute hypokalemia, Acute hyperkalemia Condition: Serious Coding Level of Care Code ED Cancer Program Coordinator for Chg Fwd Exam Detailed
[2021-12-08] VITALS (47 sets, daily range): BP systolic 105–194; BP diastolic 48–119; PULSE 62–115; RESP 14–31; TEMP 36.6–37.1; O2SAT 75–99
[2021-12-08 00:10] LABS: Basophils % 0.3 %; Hematocrit 38.7 % (37.0-47.0); Hemoglobin 13.1 g/dL (11.5-15.3); Lymphocytes # 1.3 10^3/uL (0.8-4.8); Lymphocytes % 8.1 %; Mean Corpuscular HGB Conc 33.9 g/dL (30.0-36.0); Mean Corpuscular Hemoglobin 31.7 pg (28.0-34.0); Mean Corpuscular Volume 93.7 fl (81-99); Mean Platelet Volume 10.7 fL (7.4-10.4); Monocytes # 0.4 10^3/uL (0.2-0.9); Monocytes % 2.8 %; Neutrophils # 13.63 10^3/uL (1.8-7.7); Neutrophils % 87.5 %; Nucleated Red Blood Cells # 0.1 /100WBC; Nucleated Red Blood Cells % 0.4 %; Platelet Count 177 10^3/cmm (130-400); Red Blood Count 4.13 10^6/uL (4.1-5.3); Red Cell Distribution Width 14.6 % (12.1-15.1); White Blood Count 15.6 10^3/uL (4.0-10.0)
[2021-12-08] MEDS: lactated ringers 1,000 ML 999 ML IV ×4 (00:14→13:01)
[2021-12-08 00:22] LABS: Alanine Aminotransferase 115 U/L (0-33); Albumin Level 3.3 g/dL (3.5-5.2); Alcohol Level 105 mg/dL (0-10); Alkaline Phosphatase 398 IU/L (35-105); Anion Gap 30.3 (5-19); Aspartate Amino Transferase 183 U/L (0-32); Blood Urea Nitrogen 7 mg/dL (6-20); Calcium 8.6 mg/dL (8.5-10.5); Carbon Dioxide 26 mmol/L (22-29); Chloride 72 mmol/L (98-107); Globulin 3.5 g/dL (1.3-4.6); Glomerular Filtration Rate 74.2 mL/min (90-130); Osmolality Calculated 287 mOsm/kg (285-295); Sodium 126 mmol/L (136-145); Total Bilirubin 2.5 mg/dL (0.15-1.2); Total Protein 6.8 g/dL (6.6-8.7)
[2021-12-08 00:27] LABS: Acetaminophen < 5.0 ug/mL (10-30); Salicylate < 0.3 mg/dL (3-10)
[2021-12-08 00:28] LABS: Glucose 584 mg/dL (65-115); Potassium 2.3 mmol/L (3.5-5.1)
[2021-12-08 00:40] LABS: Urine Appearance Clear (CLEAR); Urine Color Yellow (Yellow)
[2021-12-08 00:41] LABS: Add Urine Microscopic? YES; Bilirubin Urine Neg (Negative); Blood Urine 2+ (Negative); Glucose Urine UA 4+ (Normal); Ketones Urine Negative (Negative); Leukocyte Esterase Urine Trace (Negative); Nitrate Urine Negative (Negative); Protein Urine Neg (Negative); Specific Gravity, Urine 1.005 (1.005-1.030); Urobilinogen Urine 1 mg/dL (Negative); pH Urine 6.5 (5-7)
[2021-12-08 00:43] LABS: INR 1.09 (0.8-1.2)
[2021-12-08 00:44] LABS: Amphetamines Screen Urine Negative (Negative); Barbiturates Screen Urine Negative (Negative); Benzodiazepines Screen Urine Negative (Negative); Cocaine Screen Urine Negative (Negative); Opiate Screen Urine Negative (Negative); PCP Screen Urine Negative (Negative); THC Screen Urine Negative (Negative)
[2021-12-08 00:44] LABS: Add Urine Culture? No; Bacteria Urine 2+ /hpf; Squamous Epithelial Cell Urine 15-25 /hpf (0-5); WBC Urine 15-25 /hpf (0-5)
--- NOTE | 2021-12-08 00:58 | CTR_ITS ---
PROCEDURE INFORMATION: Exam: CT Abdomen And Pelvis With Contrast Exam date and time: 12/08/2021 1:34 AM Age: 56 years old Clinical indication: Nausea; Prior surgery; Surgery date: 6+ months; Surgery type: Hyst; Additional info: Elevated lft, altered mental status, nausea TECHNIQUE: Imaging protocol: Computed tomography of the abdomen and pelvis with contrast. Radiation optimization: All CT scans at this facility use at least one of these dose optimization techniques: automated exposure control; mA and/or kV adjustment per patient size (includes targeted exams where dose is matched to clinical indication); or iterative reconstruction. Contrast material: OMNI 300; Contrast volume: 95 ml; Contrast route: INTRAVENOUS (IV); COMPARISON: CR (CHEST, ) 12/07/2021 10:55 PM RADIATION DOSE METRICS: Total DLP (mGy-cm): 1433.17 FINDINGS: Liver: Diffuse fatty infiltration of the liver. Gallbladder and bile ducts: Status post cholecystectomy. The common bile duct is dilated to 1.3 cm, which may be a reaction to absent gallbladder. Pancreas: Unremarkable. Spleen: Unremarkable. Adrenal glands: The right adrenal gland is unremarkable. There is a 2.6 cm x 2.1 cm heterogeneous mass in the left adrenal gland on series 2, image 21. Density is 40 Hounsfield units. Etiology is indeterminate. Consider adrenal washout protocol CT on a nonemergent basis. Kidneys and ureters: The kidneys are unremarkable. No renal stones identified. No hydronephrosis on either side. Stomach and bowel: No dilated bowel loops identified to suggest obstruction. No diverticulitis identified. Fatty infiltration of the wall of the ascending colon, transverse colon, and descending colon. This is nonspecific but may be residua of prior inflammatory episodes. Appendix: The appendix is not visualized as a separate structure. No findings to suggest appendicitis. Intraperitoneal space: No free intraperitoneal air identified. No free intraperitoneal fluid identified. Vasculature: No abdominal aortic aneurysm. Lymph nodes: Unremarkable. Urinary bladder: Unremarkable as visualized. Reproductive: The uterus is not seen, consistent with hysterectomy. Bones/joints: Mild degenerative changes of the lower thoracic spine. Moderate degenerative disc disease at L5-S1. Bilateral L5 pars interarticularis defects noted. Grade 1 anterolisthesis of L5 on S1. Soft tissues: Unremarkable. CT/CT abdomen pelvis w con* [id number] IMPRESSION: 1. Fatty liver. 2. Additional, nonemergent findings as above.
[2021-12-08] MEDS: potassium chloride premix 100 ML 25 MEQ IV (01:06)
[2021-12-08 01:08] LABS: ABG PCO2 41.7 mmHg (35-45); ABG PH Result 7.45 (7.35-7.45); Arterial Blood Gas Hematocrit 38.3 % (37-47); Base Excess ABG 4.6 mmol/L (-2.0-2.0); Blood Gas Allen Test Pos; Blood Gas Sample Site Radial, left; Blood Gas Sample Type Arterial; HCO3 ABG 29.1 mmol/L (22-26); Oxygen Device ROOM AIR; PO2 ABG 53.1 mmHg (80.0-100.0)
[2021-12-08] MEDS: sodium chloride 0.9% 1,000 ML 999 ML IV ×2 (01:24→02:49)
[2021-12-08] MEDS: iohexol 300 mg/mL 100 mL Btl IV (01:34)
[2021-12-08 01:40] LABS: Ketone (Acetest) Serum Negative (Negative)
[2021-12-08] MEDS: LORazepam 2 mg/mL INJ 1 mL 1 MG IVP (02:50)
[2021-12-08 03:06] LABS: Glucose Point of Care 458 mg/dL (70-110)
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
[2021-12-08] MEDS: pantoprazole 40 mg SDV IVP ×2 (05:58→17:37)
[2021-12-08] MEDS: lidocaine 1% 5 ML in potassium chloride premix 100 ML 25 ML IV (06:00)
[2021-12-08] MEDS: sodium chlor 0.9% + KCl 40 mEq 40 MEQ/1,000 ML BAG 125 MEQ IV ×3 (06:01→20:58)
[2021-12-08] MEDS: chlordiazePOXIDE 25 mg Capsule PO (06:14)
[2021-12-08] MEDS: cefTRIAXone 1,000 MG in sodium chloride 0.9% (plus) 50 ML 100 MG IV (06:28)
[2021-12-08 07:11] LABS: Glucose Point of Care 452 mg/dL (70-110)
[2021-12-08] MEDS: fluoxetine 10 mg Capsule PO (09:01)
[2021-12-08] MEDS: dilTIAZem ER (24HR) 180 mg Capsule PO (09:01)
[2021-12-08] MEDS: multivitamin therapeutic Tablet 1 TAB PO (09:01)
[2021-12-08] MEDS: apixaban 5 mg Tablet PO ×2 (09:02→17:37)
[2021-12-08] MEDS: folic acid 1 mg Tablet PO (09:02)
[2021-12-08 09:08] LABS: Glucose Point of Care 426 mg/dL (70-110)
[2021-12-08 09:08] LABS: Glucose Point of Care 457 mg/dL (70-110)
--- NOTE | 2021-12-08 09:09 | ECG_ITS ---
[facility] Test Date: 2021-12-08 Pat Name: Isabel Machado Department: Room: ICU09 Gender: Female Barrel Header: : 1965 Requested By: Robby Wiggins Order Number: [id number] Claritza MD: Julius Saldaña M.D. Measurements Intervals [place] Rate: 106 P: 76 MS: 162 QRS: 10 QRSD: 83 T: 55 QT: 354 QTc: 470 Interpretive Statements SINUS TACHYCARDIA WITH FREQUENT SUPRAVENTRICULAR PREMATURE COMPLEXES NONSPECIFIC T-WAVE ABNORMALITY Compared to ECG 12/07/2021 22:48:02 Sinus rhythm no longer present Ventricular premature complex(es) no longer present Possible ischemia no longer present T-wave abnormality still present Electronically Signed On 12-09-2021 9:05:05 CDT by Julius Saldaña M.D. [id number]
--- NOTE | 2021-12-08 09:16 | PC.NURSE ---
restless and confused to place ect slight tremor noted and frequent diarhea noted howard area and groin red and irritated and very tender to touch ointment applied at this time... blood surgar check frequent this am .. confused and bed alarm placed at this time .
[2021-12-08 11:07] LABS: Glucose Point of Care 473 mg/dL (70-110)
[2021-12-08 11:07] LABS: Glucose Point of Care 523 mg/dL (70-110)
--- NOTE | 2021-12-08 11:09 | PC.NURSE ---
frequent loose stools noted at this time .. fequent howard care done .. remains red and irritated and painful..
[2021-12-08 11:19] LABS: Lactate (Lactic Acid level) 1.8 mmol/L (0.5-2.2)
[2021-12-08 11:21] LABS: Troponin(5th) Baseline 34 ng/L (0-10)
[2021-12-08 11:26] LABS: Estmated Average Glucose 324; Hemoglobin A1C 12.9 % (4.0-6.0)
--- NOTE | 2021-12-08 11:28 | PM.MISC ---
Miscellaneous Note Note: Morning patient was showing signs of mild withdrawal, tachycardia, hyperglycemia, will start IV insulin once potassium is repleted Discontinue lorazepam, I would use phenobarbital monotherapy regimen She can have 130 mg of phenobarbital IV or IM every 2 hours for mild to moderate withdrawal, for severe withdrawal she can get 260 mg every 2 hours Monitor for any signs of respiratory depression She is hemodynamically stable for now I have repeated lactic acid and BMP on stat basis Patient was pleasant and cooperative during my evaluation Nonfocal neuro exam Abdomen is soft Mildly tender in midepigastric region Looks euvolemic No active tremors Nurse updated
[2021-12-08 11:55] LABS: NT Pro B Type Natriuretic Pept 1805 pg/mL (0-125); Procalcitonin 0.44 ng/mL (0-0.5)
[2021-12-08 12:06] LABS: Anion Gap 16.1 (5-19); Blood Urea Nitrogen 6 mg/dL (6-20); C Reactive Protein 8.9 mg/L (0.0-4.9); Calcium 7.6 mg/dL (8.5-10.5); Carbon Dioxide 27 mmol/L (22-29); Chloride 89 mmol/L (98-107); Glomerular Filtration Rate 86.6 mL/min (90-130); Glucose 488 mg/dL (65-115); Magnesium 1.8 mg/dL (1.7-2.3); Osmolality Calculated 287 mOsm/kg (285-295); Phosphorus 1.1 mg/dL (2.5-4.5); Potassium 3.1 mmol/L (3.5-5.1); Sodium 129 mmol/L (136-145)
[2021-12-08] MEDS: metoprolol tartrate 25 mg Tablet PO ×2 (13:01→21:47)
[2021-12-08] MEDS: potassium chloride ER 20 mEq Tablet 40 MEQ PO (13:01)
[2021-12-08 13:16] LABS: Glucose Point of Care 519 mg/dL (70-110)
[2021-12-08 13:42] LABS: Troponin 5 2HR 28.52 ng/L (0-10)
[2021-12-08 13:51] LABS: Troponin 5 2HR Delta -5.48 ABS# (0-10)
[2021-12-08 15:45] LABS: Glucose Point of Care 504 mg/dL (70-110)
[2021-12-08 15:45] LABS: Glucose Point of Care 527 mg/dL (70-110)
--- NOTE | 2021-12-08 17:32 | PC.NURSE ---
lab called concerning bmp not reporting out ... was not done ... asked poultry farm laborer to please draw one now as stat
[2021-12-08 17:47] LABS: Glucose Point of Care 450 mg/dL (70-110)
[2021-12-08 18:14] LABS: Anion Gap 9.7 (5-19); Blood Urea Nitrogen 5 mg/dL (6-20); Calcium 7.3 mg/dL (8.5-10.5); Carbon Dioxide 30 mmol/L (22-29); Chloride 95 mmol/L (98-107); Glomerular Filtration Rate 103.4 mL/min (90-130); Glucose 448 mg/dL (65-115); Osmolality Calculated 289 mOsm/kg (285-295); Potassium 3.7 mmol/L (3.5-5.1); Sodium 131 mmol/L (136-145)
[2021-12-08 19:53] LABS: Glucose Point of Care 387 mg/dL (70-110)
[2021-12-08 20:41] LABS: Glucose Point of Care 392 mg/dL (70-110)
[2021-12-08 21:39] LABS: Glucose Point of Care 368 mg/dL (70-110)
[2021-12-08] MEDS: potassium chloride ER 20 mEq Tablet PO (21:47)
[2021-12-08] MEDS: insulin regular-human 250 UNIT in sodium chloride 0.9% 250 ML 8.18 UNIT IV (22:40)
[2021-12-08] MEDS: PHENobarbital 130 mg/mL SDV 1 mL 120 MG IV (23:16)
[2021-12-09] VITALS (52 sets, daily range): BP systolic 106–174; BP diastolic 67–101; PULSE 56–109; RESP 14–30; TEMP 36–36.9; O2SAT 75–100
[2021-12-09] MEDS: LORazepam 2 mg/mL INJ 1 mL 1 MG IVP (01:08)
[2021-12-09] MEDS: dexmedeTOMIDine 0.9 % NaCL 400 MCG/100 ML PREMIX IV (02:35)
[2021-12-09 02:51] LABS: Glucose Point of Care 271 mg/dL (70-110)
[2021-12-09 02:51] LABS: Glucose Point of Care 118 mg/dL (70-110)
[2021-12-09 02:51] LABS: Glucose Point of Care 127 mg/dL (70-110)
[2021-12-09 02:51] LABS: Glucose Point of Care 330 mg/dL (70-110)
[2021-12-09 04:11] LABS: Glucose Point of Care 138 mg/dL (70-110)
[2021-12-09 05:10] LABS: Glucose Point of Care 138 mg/dL (70-110)
[2021-12-09] MEDS: pantoprazole 40 mg SDV IVP ×2 (05:18→18:06)
[2021-12-09] MEDS: cefTRIAXone 1,000 MG in sodium chloride 0.9% (plus) 50 ML 100 MG IV (05:18)
[2021-12-09] MEDS: sodium chlor 0.9% + KCl 40 mEq 40 MEQ/1,000 ML BAG 125 MEQ IV (05:20)
[2021-12-09 06:20] LABS: Phosphorus 0.4 mg/dL (2.5-4.5)
[2021-12-09 06:28] LABS: Alanine Aminotransferase 66 U/L (0-33); Albumin Level 2.7 g/dL (3.5-5.2); Alkaline Phosphatase 240 IU/L (35-105); Anion Gap 13.3 (5-19); Aspartate Amino Transferase 94 U/L (0-32); Blood Urea Nitrogen 4 mg/dL (6-20); Calcium 7.5 mg/dL (8.5-10.5); Carbon Dioxide 29 mmol/L (22-29); Chloride 97 mmol/L (98-107); Globulin 2.3 g/dL (1.3-4.6); Glomerular Filtration Rate 86.6 mL/min (90-130); Glucose 137 mg/dL (65-115); Magnesium 1.7 mg/dL (1.7-2.3); Osmolality Calculated 279 mOsm/kg (285-295); Potassium 4.3 mmol/L (3.5-5.1); Sodium 135 mmol/L (136-145); Total Bilirubin 1.2 mg/dL (0.15-1.2)
[2021-12-09 06:45] LABS: Glucose Point of Care 167 mg/dL (70-110)
[2021-12-09] MEDS: metoprolol tartrate 25 mg Tablet PO ×2 (08:58→21:03)
[2021-12-09] MEDS: apixaban 5 mg Tablet PO ×2 (08:58→18:06)
[2021-12-09] MEDS: fluoxetine 10 mg Capsule PO (08:58)
[2021-12-09 10:06] LABS: Glucose Point of Care 183 mg/dL (70-110)
--- NOTE | 2021-12-09 10:43 | PC.CHAP ---
Pastoral Care Encounter/Spiritual Assessment Type of Contact [] Declined scenic arts supervisor visit [] Patient/Family/Request visit [] Outpatient visit [] Follow-up visit [] Physician referral [] Code/Alert [x] Routine visit [] Staff referral [] Actively dying [] Patient sleeping [] Family support [] [] Out of room [] Palliative care [] [] Receiving care in room [] Pre-surgical visit [] Trauma [] Long length of stay [x] ICU visit [] Other: Relational/Emotional Strength [] Patient feels connected with others/family/visitors/staff [] Distress [] Loneliness/isolation [] Abandonment Spirituality of Patient [] Person of Emma [] Attends Amish of their Emma [] Believes in Prayer [] Reads Bible or Evangelical materials [] There are Spiritual issues to be addressed Shape Carver Interventions [x] Prayer [] Active listening [] Non-anxious presence [] Spiritual/emotional support [] Crisis/trauma care [] Spiritual counseling [] Bereavement support [] Provided bereavement packet [] Provided Bible/devotional materials [] Provided toy/stuffed animal, coloring book to patient or family member [] Provided Communion [] Anointing/[place] [] Salvation [x] Completed spiritual assessment [] Other: Impact on Illness or Injury [] Angry [] Fearful [] Anxious [] Often cries [] Exhaustion [] Unable to work [] Unable to attend adventist [] Unable to walk/stand [] Unable to read [] Unable to drive [] Unable to eat/drink [] Unable to sleep [] Unable to be with family [] Patient intubated [] Other: Summary Time spent with patient
[2021-12-09 11:16] LABS: Glucose Point of Care 181 mg/dL (70-110)
[2021-12-09] MEDS: insulin lispro 100 unit/1 mL SUBCUT ×2 (11:41→18:06)
--- NOTE | 2021-12-09 13:14 | PM.PN ---
Subjective Subjective: Blood glucose is normal, severe electrolyte imbalance replenished this morning Current off pressors which was started last night Plan of IV fluids and IV insulin Phosphorus and magnesium repleted Potassium 4.3 Patient is very drowsy at the time of my evaluation she was on Precedex 0.1 which have discontinued Currently on 4 L nasal cannula Tachycardic Hypertensive Vitals/I&O/Wt Last Vital Signs Temp 98.1 F 12/09/21 07:30 Pulse 109 H 12/09/21 09:00 Resp 23 H 12/09/21 09:00 BP 157/95 12/09/21 09:00 Pulse Ox 93 12/09/21 08:37 12/08/21 12/09/21 12/09/21 22:59 06:59 14:59 Intake Total 2212.5 / 4667.5 1232.681 / 5900.181 30 / 30 Output Total 1575 / 2400 300 / 2700 Balance 637.5 / 2267.5 932.681 / 3200.181 30 / 30 Weight last 48 hrs Weight 72.575 kg Physical Exam Narrative: Patient was very fatigued and lethargic drowsy However able to open eyes and move her upper extremities to rub her eyes Abdomen is distended, soft No signs of edema S1, S2 variable Hypertensive Currently on 4 L nasal cannula Nonlabored breathing Crusting of right eyelid noted Urinary Catheter Management: Moreno: Cath Placed During This Visit: yes Reason for Continuing Indwelling Catheter: Accurate Measurement of Urinary Output in Critically Ill Patients Urinary Catheter Date of Insertion: 12/08/21 Urinary Catheter Time of Insertion: 12:52 Data : 12/07/21 23:40 12/09/21 03:31 A&P Assessment and plan (1) UTI (urinary tract infection): Status: Acute (2) Transaminitis: Status: Acute (3) Hyperglycemia: Status: Acute (4) Metabolic acidosis, increased anion gap (IAG): Status: Acute (5) Hypertension, uncontrolled: Status: Acute (6) Depression: Status: Acute (7) Atrial fibrillation: Status: Acute (8) Alcohol withdrawal: Status: Acute (9) Acute hypokalemia: Status: Acute (10) Acute hyperkalemia: Status: Acute (11) Refeeding syndrome: Status: Acute Plan Patient is suffering from refeeding syndrome Abnormal electrolytes to be replenished We will give IV phosphorus as well Monitor for any signs of respiratory depression Currently on 4 L nasal cannula Secondary to hypoventilation Alcohol withdrawal Turn off Precedex I will keep her on monotherapy with phenobarbital 130 mg every 2 hours for mild to moderate withdrawal, to 60 mg every 2 hours for severe withdrawal Discontinue IV fluids Abnormal transaminases: Trending down She is afebrile, no signs of cholangitis Alcohol-related hepatic steatosis Pseudohyponatremia related to hyperglycemia: Improving Hyperglycemia without DKA: Improved with IV fluids and use of IV insulin overnight once potassium was repleted Mixed acid-base disorder Anxiety/depression She is DNR/DNI A. fib, continue Eliquis Attestations Medical Necessity Statement*: Will transfer out of ICU tomorrow, because of low phosphorus needs to be monitored in ICU for now Time Spent in Patient Care: 30mins Coding Level of Care Code Acute Pulp Beater for Chg Fwd Diagnoses UTI (urinary tract infection) N39.0 Transaminitis R74.01 Hyperglycemia R73.9 Metabolic acidosis, increased anion gap (IAG) E87.2 Hypertension, uncontrolled I10 Depression F32.9 Atrial fibrillation I48.91 Alcohol withdrawal F10.239 Acute hypokalemia E87.6 Acute hyperkalemia E87.5 Refeeding syndrome E87.8
[2021-12-09] MEDS: PHENobarbital 130 mg/mL SDV 1 mL 120 MG IV (16:50)
[2021-12-09 17:00] LABS: Alanine Aminotransferase 64 U/L (0-33); Albumin Level 2.7 g/dL (3.5-5.2); Alkaline Phosphatase 246 IU/L (35-105); Blood Urea Nitrogen 4 mg/dL (6-20); Calcium 7.3 mg/dL (8.5-10.5); Carbon Dioxide 26 mmol/L (22-29); Chloride 100 mmol/L (98-107); Globulin 2.2 g/dL (1.3-4.6); Glomerular Filtration Rate 103.4 mL/min (90-130); Glucose 156 mg/dL (65-115); Osmolality Calculated 280 mOsm/kg (285-295); Phosphorus 1.2 mg/dL (2.5-4.5); Sodium 135 mmol/L (136-145); Total Bilirubin 0.9 mg/dL (0.15-1.2); Total Protein 4.9 g/dL (6.6-8.7)
[2021-12-09 17:01] LABS: Anion Gap 13.6 (5-19); Aspartate Amino Transferase 102 U/L (0-32); Potassium 4.6 mmol/L (3.5-5.1)
[2021-12-09 18:06] LABS: Glucose Point of Care 151 mg/dL (70-110)
[2021-12-09] MEDS: phosphorus 250 mg Tablet PO (18:07)
[2021-12-09] MEDS: acetaminophen 325 mg Tablet 650 MG PO (21:03)
[2021-12-09 21:13] LABS: Glucose Point of Care 150 mg/dL (70-110)
[2021-12-10] VITALS (31 sets, daily range): BP systolic 109–175; BP diastolic 62–105; PULSE 67–94; RESP 13–27; TEMP 36.7–37.1; O2SAT 91–99
[2021-12-10 04:32] LABS: Basophils # 0.1 10^3/uL (0.0-0.1); Basophils % 0.7 %; Eosinophils % 0.4 %; Hematocrit 33.9 % (37.0-47.0); Hemoglobin 10.6 g/dL (11.5-15.3); Lymphocytes # 1.9 10^3/uL (0.8-4.8); Lymphocytes % 22.2 %; Mean Corpuscular HGB Conc 31.3 g/dL (30.0-36.0); Mean Corpuscular Hemoglobin 31.5 pg (28.0-34.0); Mean Corpuscular Volume 100.9 fl (81-99); Mean Platelet Volume 11.5 fL (7.4-10.4); Monocytes # 0.3 10^3/uL (0.2-0.9); Monocytes % 3.8 %; Neutrophils # 5.48 10^3/uL (1.8-7.7); Neutrophils % 65.6 %; Nucleated Red Blood Cells # 0.2 /100WBC; Nucleated Red Blood Cells % 1.9 %; Platelet Count 108 10^3/cmm (130-400); Red Blood Count 3.36 10^6/uL (4.1-5.3); Red Cell Distribution Width 16.1 % (12.1-15.1); White Blood Count 8.4 10^3/uL (4.0-10.0)
[2021-12-10 04:56] LABS: Anion Gap 14.3 (5-19); Blood Urea Nitrogen 4 mg/dL (6-20); Calcium 7.7 mg/dL (8.5-10.5); Carbon Dioxide 26 mmol/L (22-29); Chloride 96 mmol/L (98-107); Glomerular Filtration Rate 127.6 mL/min (90-130); Glucose 170 mg/dL (65-115); Magnesium 1.6 mg/dL (1.7-2.3); Osmolality Calculated 275 mOsm/kg (285-295); Phosphorus 1.1 mg/dL (2.5-4.5); Potassium 4.3 mmol/L (3.5-5.1); Sodium 132 mmol/L (136-145)
[2021-12-10 04:59] LABS: Creatine Phosphokinase 43 U/L (26-192)
[2021-12-10 05:01] LABS: Slide Review Slide Review Perform
[2021-12-10] MEDS: pantoprazole 40 mg SDV IVP ×3 (05:46→22:09)
[2021-12-10 08:19] LABS: Glucose Point of Care 166 mg/dL (70-110)
[2021-12-10] MEDS: folic acid 1 mg Tablet PO (08:36)
[2021-12-10] MEDS: apixaban 5 mg Tablet PO ×2 (08:36→19:29)
[2021-12-10] MEDS: dilTIAZem ER (24HR) 180 mg Capsule PO (08:36)
[2021-12-10] MEDS: fluoxetine 10 mg Capsule PO (08:36)
[2021-12-10] MEDS: phosphorus 250 mg Tablet PO ×2 (08:36→19:29)
[2021-12-10] MEDS: metoprolol tartrate 25 mg Tablet PO ×2 (08:36→22:09)
[2021-12-10] MEDS: multivitamin therapeutic Tablet 1 TAB PO (08:37)
[2021-12-10] MEDS: thiamine 100 mg Tablet PO (08:37)
[2021-12-10] MEDS: thiamine 500 MG in sodium chloride 0.9% (100 ml) 100 ML 210 MG IV (08:37)
[2021-12-10] MEDS: insulin lispro 100 unit/1 mL SUBCUT ×3 (08:38→19:31)
[2021-12-10 12:24] LABS: Glucose Point of Care 261 mg/dL (70-110)
--- NOTE | 2021-12-10 12:30 | PC.NURSE ---
Pt transferred to [facility] via bed. Staff aware pt was on unit.
--- NOTE | 2021-12-10 12:55 | PM.PN ---
Subjective Subjective: This morning patient is awake and alert however very lethargic, PT evaluation to be done, she can be transferred out of ICU CIWA score is 0 Electrolytes replenished Blood glucose is better hemodynamically stable Vitals/I&O/Wt Last Vital Signs Temp 98.1 F 12/10/21 04:00 Pulse 81 12/10/21 12:00 Resp 15 12/10/21 12:00 BP 123/69 12/10/21 12:30 Pulse Ox 93 12/10/21 12:00 12/09/21 12/10/21 12/10/21 22:59 06:59 14:59 Intake Total 150 / 180 480 / 660 280 / 280 Output Total 250 / 250 200 / 450 Balance -100 / -70 280 / 210 280 / 280 Physical Exam Narrative: Patient is doing well No active withdrawal signs or symptoms however very fatigued and lethargic Moreno catheter draining dilute urine Abdomen soft Patient is awake and alert Nonfocal neuro exam S1, S2 Hemodynamically stable No signs of edema Abdomen distended however soft no signs of peritonitis Nonfocal neuro exam EOMI, PERRLA Urinary Catheter Management: Moreno: Cath Placed During This Visit: yes Reason for Continuing Indwelling Catheter: Accurate Measurement of Urinary Output in Critically Ill Patients Urinary Catheter Date of Insertion: 12/08/21 Urinary Catheter Time of Insertion: 12:52 Data : 12/10/21 04:15 12/10/21 04:15 A&P Assessment and plan (1) Refeeding syndrome: Status: Acute (2) UTI (urinary tract infection): Status: Acute (3) Transaminitis: Status: Acute (4) Hyperglycemia: Status: Acute (5) Atrial fibrillation: Status: Acute (6) Alcohol withdrawal: Status: Acute (7) Acute hypokalemia: Status: Acute (8) Hypophosphatemia: Status: Acute Plan Alcohol withdrawal: Improved No need to start benzodiazepines, we will keep her on p.o. 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
[2021-12-10 15:53] LABS: Ethylene Glycol <10.0 mg/L (***)
[2021-12-10 19:22] LABS: Glucose Point of Care 292 mg/dL (70-110)
[2021-12-10 21:35] LABS: Glucose Point of Care 239 mg/dL (70-110)
[2021-12-10] MEDS: insulin glargine 100 units/1 mL 20 UNIT SUBCUT (22:09)
[2021-12-10] MEDS: nystatin powder 15 gm Btl 1 APPLIC TOPICAL (22:10)
[2021-12-11] VITALS (7 sets, daily range): BP systolic 104–138; BP diastolic 69–83; PULSE 72–92; RESP 13–17; TEMP 36.6–37.1; O2SAT 92–96
--- NOTE | 2021-12-11 00:44 | PC.NURSE ---
Alcohol Found: SPINNING MACHINE OPERATOR reported that when she was putting the patient's belongings away a small bottle of alcohol fell out of the jacket pocket. Manufacturing Design Engineer notified and came to speak to the patient with this investment underwriter. Told the patient what was found and asked if her belongings could be searched and she agreed. Nothing else was found. The patient said that we could throw it away because she was done with it . Educated the patient on no alcohol or tobacco products allowed on property and she verbalized understanding. The alcohol and cigarettes were given to Marek in security. Event report filed.
[2021-12-11 05:52] LABS: Hemoglobin 10.4 g/dL (11.5-15.3); Mean Corpuscular HGB Conc 31.5 g/dL (30.0-36.0); Mean Corpuscular Hemoglobin 31.2 pg (28.0-34.0); Mean Corpuscular Volume 99.1 fl (81-99); Mean Platelet Volume 11.1 fL (7.4-10.4); Platelet Count 119 10^3/cmm (130-400); Red Blood Count 3.33 10^6/uL (4.1-5.3); Red Cell Distribution Width 16.2 % (12.1-15.1)
[2021-12-11 06:11] LABS: Magnesium 1.6 mg/dL (1.7-2.3); Phosphorus 2.1 mg/dL (2.5-4.5)
[2021-12-11 06:16] LABS: Alanine Aminotransferase 51 U/L (0-33); Albumin Level 2.4 g/dL (3.5-5.2); Alkaline Phosphatase 227 IU/L (35-105); Anion Gap 12.1 (5-19); Aspartate Amino Transferase 70 U/L (0-32); Blood Urea Nitrogen 4 mg/dL (6-20); Calcium 8.2 mg/dL (8.5-10.5); Carbon Dioxide 28 mmol/L (22-29); Chloride 97 mmol/L (98-107); Globulin 2.5 g/dL (1.3-4.6); Glomerular Filtration Rate 103.4 mL/min (90-130); Glucose 286 mg/dL (65-115); Osmolality Calculated 283 mOsm/kg (285-295); Potassium 4.1 mmol/L (3.5-5.1); Sodium 133 mmol/L (136-145); Total Bilirubin 0.7 mg/dL (0.15-1.2); Total Protein 4.9 g/dL (6.6-8.7)
[2021-12-11 06:24] LABS: Glucose Point of Care 273 mg/dL (70-110)
[2021-12-11 07:00] LABS: Slide Review Slide Review Perform
[2021-12-11 07:04] LABS: Absolute Segmented Neutrophil 4.9 10/cmm (1.6-7.1); Band Neutrophils Absolute 1.1 10^3/cmm (0.0-1.2); Corrected White Blood Count 7.5 10^3/cmm (4.8-10.8); Lymphocytes 17 %; Monocytes Absolute 0.2 10^3/cmm (0.1-0.6); Segmented Neutrophils 61 %; Total Cells Counted 100 (0-100)
[2021-12-11 07:06] LABS: Anisocytosis 1+; Eosinophils 0 %; Hypochromasia Trace; Lymphocytes Absolute 1.4 10^3/cmm (1.2-3.4); Platelet Estimate Decreased (Normal); Polychromasia 1+; Stomatocytes 1+
[2021-12-11] MEDS: fluoxetine 10 mg Capsule PO (08:50)
[2021-12-11] MEDS: folic acid 1 mg Tablet PO (08:50)
[2021-12-11] MEDS: dilTIAZem ER (24HR) 180 mg Capsule PO (08:50)
[2021-12-11] MEDS: multivitamin therapeutic Tablet 1 TAB PO (08:50)
[2021-12-11] MEDS: phosphorus 250 mg Tablet PO ×2 (08:50→18:27)
[2021-12-11] MEDS: apixaban 5 mg Tablet PO ×2 (08:51→18:27)
[2021-12-11] MEDS: thiamine 100 mg Tablet PO (08:51)
[2021-12-11] MEDS: thiamine 500 MG in sodium chloride 0.9% (100 ml) 100 ML 210 MG IV (08:55)
[2021-12-11] MEDS: insulin lispro 100 unit/1 mL SUBCUT ×2 (09:03→12:59)
[2021-12-11] MEDS: metoprolol tartrate 25 mg Tablet PO ×2 (09:06→20:17)
[2021-12-11] MEDS: nystatin powder 15 gm Btl 1 APPLIC TOPICAL ×2 (09:10→18:27)
[2021-12-11 11:20] LABS: Glucose Point of Care 250 mg/dL (70-110)
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
[2021-12-11 17:41] LABS: Glucose Point of Care 137 mg/dL (70-110)
[2021-12-11] MEDS: magnesium oxide 400 mg tablet PO (18:27)
[2021-12-11] MEDS: pantoprazole 40 mg SDV IVP (18:28)
[2021-12-11] MEDS: insulin glargine 100 units/1 mL 20 UNIT SUBCUT (20:18)
[2021-12-11 21:08] LABS: Glucose Point of Care 243 mg/dL (70-110)
[2021-12-12] VITALS (9 sets, daily range): BP systolic 120–128; BP diastolic 68–78; PULSE 68–86; RESP 14–18; TEMP 36.6–36.8; O2SAT 92–98
[2021-12-12] MEDS: pantoprazole 40 mg SDV IVP ×3 (05:24→20:48)
[2021-12-12 06:07] LABS: Anion Gap 13.7 (5-19); Blood Urea Nitrogen 5 mg/dL (6-20); Calcium 8.6 mg/dL (8.5-10.5); Carbon Dioxide 28 mmol/L (22-29); Chloride 97 mmol/L (98-107); Glomerular Filtration Rate 103.4 mL/min (90-130); Glucose 322 mg/dL (65-115); Magnesium 1.3 mg/dL (1.7-2.3); Osmolality Calculated 290 mOsm/kg (285-295); Phosphorus 2.7 mg/dL (2.5-4.5); Potassium 3.7 mmol/L (3.5-5.1); Sodium 135 mmol/L (136-145)
[2021-12-12 06:42] LABS: Glucose Point of Care 347 mg/dL (70-110)
[2021-12-12] MEDS: multivitamin therapeutic Tablet 1 TAB PO (08:48)
[2021-12-12] MEDS: dilTIAZem ER (24HR) 180 mg Capsule PO (08:48)
[2021-12-12] MEDS: folic acid 1 mg Tablet PO (08:49)
[2021-12-12] MEDS: metoprolol tartrate 25 mg Tablet PO ×2 (08:49→20:22)
[2021-12-12] MEDS: fluoxetine 10 mg Capsule PO (08:49)
[2021-12-12] MEDS: magnesium oxide 400 mg tablet PO ×2 (08:49→18:15)
[2021-12-12] MEDS: apixaban 5 mg Tablet PO ×2 (08:49→18:15)
[2021-12-12] MEDS: phosphorus 250 mg Tablet PO ×2 (08:49→18:15)
[2021-12-12] MEDS: thiamine 100 mg Tablet PO (08:53)
[2021-12-12] MEDS: insulin lispro 100 unit/1 mL SUBCUT ×3 (08:53→18:14)
[2021-12-12] MEDS: magnesium sulfate premix 2 GM/50 ML PIGGYBACK IV (09:12)
[2021-12-12] MEDS: nystatin powder 15 gm Btl 1 APPLIC TOPICAL ×2 (09:16→18:18)
--- NOTE | 2021-12-12 11:46 | P.PN_ITS ---
Subjective Subjective: Patient is endorsing weakness especially when she is getting up from sitting position, she has proximal muscle weakness related to diabetes She will need insulin, we are not able to find inpatient detox program for her most of the programs are fully booked We will request Dr. Kong to see her for her suicidal statement, when I clarified she stated that she is headed out of frustration she is not planning to harm herself, she is denying suicidal ideation at the time of my evaluation, Dr. Kong will see her today Vitals/I&O/Wt Last Vital Signs Temp 98.1 F 12/12/21 08:00 Pulse 79 12/12/21 08:11 Resp 17 12/12/21 08:11 BP 128/78 12/12/21 08:00 Pulse Ox 96 12/12/21 08:11 12/11/21 12/12/21 12/12/21 22:59 06:59 14:59 Intake Total 120 / 505 50 / 50 Output Total 1200 / 1400 Balance 120 / 305 -1200 / -895 50 / 50 Physical Exam Narrative: This morning patient was laying flat Endorsing weakness Nonfocal neuro exam No active signs of withdrawal No suicidal ideation or plans Nonfocal neuro exam Neuro, PERRLA Saturating well on room air Blood pressure is stable Edema of legs noted No audible stridor or wheezing Urinary Catheter Management: Moreno: Cath Placed During This Visit: yes, but has since been removed by the nurse Reason for Continuing Indwelling Catheter: Not indwelling catheter Urinary Catheter Date of Insertion: 12/08/21 Urinary Catheter Time of Insertion: 12:52 Date Urinary Catheter Removed: 12/11/21 Time Urinary Catheter Discontinued: 13:02 Data : 12/11/21 05:05 12/12/21 05:08 A&P Assessment and plan (1) Hypophosphatemia: Status: Acute (2) Refeeding syndrome: Status: Acute (3) UTI (urinary tract infection): Status: Acute (4) Transaminitis: Status: Acute (5) Hyperglycemia: Status: Acute (6) Hypertension, uncontrolled: Status: Acute (7) Depression: Status: Acute (8) Atrial fibrillation: Status: Acute (9) Alcohol withdrawal: Status: Acute Plan Patient will need to stay 1 more day, she has electrolyte imbalance he has also proximal muscle weakness however she does not need inpatient rehab, she could benefit from a walker and outpatient PT She is not suicidal, requested Dr. Kong for evaluation as well Plan to discharge her tomorrow We are not able to find any inpatient detox program for her at this point, patient case manager has updated the family as well, I will update them later today after Dr. Kong evaluation She will need insulin at the time of discharge She is not requiring any phenobarbital, no active signs of withdrawal Urine catheter has been removed Attestations Medical Necessity Statement*: Discharge tomorrow Time Spent in Patient Care: 20mins Coding Level of Care Code Acute Javascript Software Engineer for Chg Fwd Diagnoses Hypophosphatemia E83.39 Refeeding syndrome E87.8 UTI (urinary tract infection) N39.0 Transaminitis R74.01 Hyperglycemia R73.9 Hypertension, uncontrolled I10 Depression F32.9 Atrial fibrillation I48.91 Alcohol withdrawal F10.239
[2021-12-12 13:26] LABS: Glucose Point of Care 194 mg/dL (70-110)
[2021-12-12 18:10] LABS: Glucose Point of Care 154 mg/dL (70-110)
[2021-12-12] MEDS: insulin glargine 100 units/1 mL 20 UNIT SUBCUT (20:13)
[2021-12-12 21:03] LABS: Glucose Point of Care 237 mg/dL (70-110)
[2021-12-13] VITALS (7 sets, daily range): BP systolic 120–153; BP diastolic 70–89; PULSE 74–85; RESP 16–18; TEMP 36.7–36.9; O2SAT 94–98
[2021-12-13 06:26] LABS: Glucose Point of Care 256 mg/dL (70-110)
[2021-12-13 06:26] LABS: Glucose Point of Care 248 mg/dL (70-110)
[2021-12-13 06:33] LABS: Basophils # 0.1 10^3/uL (0.0-0.1); Basophils % 0.9 %; Eosinophils % 0.3 %; Hematocrit 31.4 % (37.0-47.0); Hemoglobin 9.5 g/dL (11.5-15.3); Lymphocytes # 1.5 10^3/uL (0.8-4.8); Lymphocytes % 22.1 %; Mean Corpuscular HGB Conc 30.3 g/dL (30.0-36.0); Mean Corpuscular Hemoglobin 31.8 pg (28.0-34.0); Monocytes # 0.6 10^3/uL (0.2-0.9); Monocytes % 9.5 %; Neutrophils # 3.79 10^3/uL (1.8-7.7); Neutrophils % 57.1 %; Nucleated Red Blood Cells # 0.1 /100WBC; Nucleated Red Blood Cells % 1.5 %; Platelet Count 145 10^3/cmm (130-400); Red Blood Count 2.99 10^6/uL (4.1-5.3); Red Cell Distribution Width 17.7 % (12.1-15.1); White Blood Count 6.6 10^3/uL (4.0-10.0)
[2021-12-13 06:38] LABS: Alanine Aminotransferase 41 U/L (0-33); Albumin Level 2.4 g/dL (3.5-5.2); Alkaline Phosphatase 174 IU/L (35-105); Anion Gap 12.9 (5-19); Aspartate Amino Transferase 46 U/L (0-32); Blood Urea Nitrogen 8 mg/dL (6-20); Calcium 8.4 mg/dL (8.5-10.5); Carbon Dioxide 30 mmol/L (22-29); Chloride 98 mmol/L (98-107); Globulin 2.4 g/dL (1.3-4.6); Glomerular Filtration Rate 103.4 mL/min (90-130); Glucose 293 mg/dL (65-115); Magnesium 1.6 mg/dL (1.7-2.3); Osmolality Calculated 293 mOsm/kg (285-295); Potassium 3.9 mmol/L (3.5-5.1); Sodium 137 mmol/L (136-145); Total Bilirubin 0.5 mg/dL (0.15-1.2); Total Protein 4.8 g/dL (6.6-8.7)
[2021-12-13 06:52] LABS: Phosphorus 3.5 mg/dL (2.5-4.5)
[2021-12-13 07:15] LABS: Slide Review Slide Review Perform
[2021-12-13] MEDS: FUROsemide 10 mg/mL SDV 2mL 20 MG IVP (08:22)
[2021-12-13] MEDS: pantoprazole 40 mg SDV IVP (08:22)
[2021-12-13] MEDS: metoprolol tartrate 25 mg Tablet PO (08:23)
[2021-12-13] MEDS: multivitamin therapeutic Tablet 1 TAB PO (08:23)
[2021-12-13] MEDS: thiamine 100 mg Tablet PO (08:23)
[2021-12-13] MEDS: magnesium oxide 400 mg tablet PO (08:23)
[2021-12-13] MEDS: apixaban 5 mg Tablet PO (08:23)
[2021-12-13] MEDS: fluoxetine 10 mg Capsule PO (08:23)
[2021-12-13] MEDS: folic acid 1 mg Tablet PO (08:23)
[2021-12-13] MEDS: insulin lispro 100 unit/1 mL SUBCUT ×2 (08:23→13:03)
[2021-12-13] MEDS: phosphorus 250 mg Tablet PO (08:23)
[2021-12-13] MEDS: dilTIAZem ER (24HR) 180 mg Capsule PO (08:23)
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
[2021-12-13 12:36] LABS: Glucose Point of Care 320 mg/dL (70-110)
== END 2021-12-13 16:43 | disposition home or self-care (01) | DRG 897 ==
LOC: ER 12-08 03:03 → ICU 12-08 03:06 → MEDSURG 12-10 12:32
PROVIDERS: Admitting Provider Family Medicine; Emergency Provider Emergency Medicine; PCP Nurse Practitioner Family; Visit Provider Internal Medicine
DX: F10.229 Alcohol dependence with intoxication, unspecified (principal); N39.0 Urinary tract infection, site not specified; E87.4 Mixed disorder of acid-base balance; F10.239 Alcohol dependence with withdrawal, unspecified; Y90.5 Blood alcohol level of 100-119 mg/100 ml; F17.210 Nicotine dependence, cigarettes, uncomplicated; E87.6 Hypokalemia; I48.91 Unspecified atrial fibrillation; E11.65 Type 2 diabetes mellitus with hyperglycemia; F32.9 Major depressive disorder, single episode, unspecified; I10 Essential (primary) hypertension; Z66 Do not resuscitate; Z79.01 Long term (current) use of anticoagulants
CPT/HCPCS: 36415; 36416; 36600; 51702; 71045; 74177; 80048; 80053; 80306; 80307; 81001; 82009; 82550; 82693; 82803; 82962; 83036; 83605; 83735; 83880; 84100; 84145; 84443; 84484; 85007; 85025; 85610; 86140; 90935; 93005; 94664; 96365; 96366; 96372; 96375; 97116; 97161; 99285; C9113; J0696; J1815 ×2; J1940; J2060; J3411; J3475; J3480; J7030; J7050; Q9967

== ENCOUNTER 2022-09-15 11:05 | Emergency (ER) | payer MEDICAID, SELFPAY ==
[2022-09-15 11:20] VITALS: BP 143/97; PULSE 110; RESP 14; TEMP 37; O2SAT 90; BMI 31.2
--- NOTE | 2022-09-15 11:25 | ED_ITS ---
HPI - Neuro Symptoms/Deficit General: Chief Complaint: Neuro Symptoms/Deficit Stated Complaint: Left Side Weakness Time Seen by Provider: 09/15/22 11:10 History of Present Illness: 56-year-old female brought in with what she is saying is left-sided weak nests and abnormal movements. Patient reports that she noticed it starting on [place] magali. That she has episodes where she has weak and has seizure-like activity where she feels like she has a hard time controlling her body and then she will fall. Patient was seen at [place] in the ER yesterday. They did a head CT that was normal. I did find that her blood sugar was above 600 and got her blood sugar down where her symptoms improved and discharged home. She reports that she continued to have multiple falls yesterday. Patient reports that she is not on any diabetic medication that her and her primary doctor talked about starting her on metformin. However chart review shows that back in December she was seen in admitted in the ER and discharged from the hospital on Lantus 20 units but is not currently taking this. Patient reports that her only medical problem is hypertension. Patient lives with her mom. Her mom reports that she is a alcoholic. However she does not believe she been drinking recently but is unsure. No reports of recent illness, fevers chills nausea or vomiting. Patient complains of weakness on the left however when she is talking to you and not pain attention she has no difficulty moving around and expressing thoughts and actions with her left side. Associated symptoms: Reports malaise; Deny chest pain, nausea or vomiting Review of Systems Const: Reports: malaise; Denies: fever(s) or chills Eyes: Denies: change in vision or eye discomfort ENMT: Denies: throat pain or ear or mastoid pain Card: Denies: chest pain or palpitations Resp: Denies: dyspnea, productive cough or wheezing GI: Denies: abdominal pain, nausea or vomiting : Denies: flank pain, difficulty voiding or dysuria Musc: Denies: neck pain or back pain Skin/Breast: Denies: rash Neuro: Reports: weakness in extremities, frequent falls and seizure-like activity [facility] ED PFSH: Medical History (Updated 09/15/22 @ 14:04 by Lamin Puente DO) Atrial fibrillation Depression Hypertension, uncontrolled Type 2 diabetes mellitus Surgical History (Updated 12/08/21 @ 03:34 by Robby Wiggins MD) History of cholecystectomy Family History (Updated 12/08/21 @ 03:34 by Robby Wiggins MD) Other CAD (coronary artery disease) Social History (Updated 12/08/21 @ 03:35 by Robby Wiggins MD) Smoking and tobacco status: current every day smoker Alcohol intake: current Desire information about alcohol rehabilitation?: Yes Physical Exam Const: COMMON NORMALS: no acute distress, patient oriented x3 and alert HENMT: COMMON NORMALS: normocephalic, hearing grossly normal bilaterally and moist oral mucous membranes HEAD & SCALP: normocephalic Eye: COMMON NORMALS: Equal, round and reactive pupils present and EOMs intact bilaterally PUPIL: Yes Equal, round and reactive pupils present Neck/C-Spine: COMMON NORMALS: full ROM and supple Resp: COMMON NORMALS: normal respiratory effort, No use of accessory muscles and clear to auscultation bilaterally AUSCULTATION: clear to auscultation bilaterally Cardio: COMMON NORMALS: regular rate and regular rhythm RATE: regular rate RHYTHM: regular rhythm GI: COMMON NORMALS: Soft to palpation and non-tender PALPATION: Yes Soft to palpation Extremity: COMMON NORMALS: normal to inspection, full ROM and capillary refill normal Neuro: COMMON NORMALS: patient oriented x3, CN's II-XII intact bilaterally, moves all extremities, no focal motor deficits, no sensory deficits noted and deep tendon reflexes 2+ bilaterally SENSORIUM/ORIENTATION: Yes alert SPEECH: speech normal MOTOR EXAM: 5/5 motor strength present throughout and Motor abnormalities not present Psych: COMMON NORMALS: mental status grossly normal, normal affect, speech normal and denies hallucinations SPEECH: Yes normal speech Skin: COMMON NORMALS: no rashes or lesions noted and turgor normal GENERAL SKIN EXAM: no rashes or lesions noted and turgor normal Course Vital Signs: Vital signs: Vital Signs Temperature 98.6 F 09/15/22 11:20 Pulse Rate 86 09/15/22 13:00 Respiratory Rate 17 09/15/22 12:54 Blood Pressure 143/97 09/15/22 11:54 Pulse Oximetry 96 09/15/22 13:00 Oxygen Delivery Me thod 09/15/22 12:54 MDM - Neuro Symptoms/Deficit Medical Decision Making Patient with a slight elevated white count and urine that is concerning for urinary tract infection. I will treat her with Rocephin IV and then Keflex. Patient had one of her seizure while in the ER. I was telling her that she would be going home and she attempted to have 1 and stopped it when I told her to stop it. 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 I discussed this with her mom and her. I did offer to start him on Keppra due to her seizure-like activity until they see a neurologist however I did explain to them that there is nothing at this time that would indicate need for admission. Patient is also positive for marijuana which is likely contributing to a behavioral issue. Patient is also not taking most of her medications as prescribed and takes very few of them including not taking Eliquis or any of her other medications. I instructed them that she will need to follow-up with her primary care provider and a neurologist for further evaluation including EEG testing. Patient is stable and discharged home Lab Data 09/15/22 11:29 09/15/22 11:29 Laboratory Results WBC 14.4 10^3/uL (4.0-10.0) H 09/15/22 11:29 RBC 4.09 10^6/uL (4.1-5.3) L 09/15/22 11:29 Hgb 12.6 g/dL (11.5-15.3) 09/15/22 11:29 Hct 39.3 % (37.0-47.0) 09/15/22 11:29 MCV 96.1 fl (81-99) 09/15/22 11:29 MCH 30.8 pg (28.0-34.0) 09/15/22 11:29 MCHC 32.1 g/dL (30.0-36.0) 09/15/22 11:29 RDW 14.5 % (12.1-15.1) 09/15/22 11:29 Plt Count 282 10^3/cmm (130-400) 09/15/22 11:29 MPV 10.3 fL (7.4-10.4) 09/15/22 11:29 Neut % (Auto) 78.1 % 09/15/22 11:29 Lymph % (Auto) 13.7 % 09/15/22 11:29 [place] % (Auto) 6.8 % 09/15/22 11:29 Eos % (Auto) 0.5 % 09/15/22 11:29 Baso % (Auto) 0.9 % 09/15/22 11:29 Neut # (Auto) 10.32 10^3/uL (1.8-7.7) H 09/15/22 11:29 Lymph # (Auto) 2.0 10^3/uL (0.8-4.8) 09/15/22 11:29 [place] # (Auto) 1.0 10^3/uL (0.2-0.9) H 09/15/22 11:29 Eos # (Auto) 0.1 10^3/uL (0.0-0.8) 09/15/22 11:29 Baso # (Auto) 0.1 10^3/uL (0.0-0.1) 09/15/22 11:29 Nucleated RBC % (auto) 0.1 % 09/15/22 11: Nucleated RBCs # 0.0 /100WBC 09/15/22 11:29 ESR 35 mm/hr (0-15) H 09/15/22 11:29 Sodium 133 mmol/L (136-145) L 09/15/22 11:29 Potassium 4.0 mmol/L (3.5-5.1) 09/15/22 11:29 Chloride 95 mmol/L (98-107) L 09/15/22 11:29 Carbon Dioxide 24 mmol/L (22-29) 09/15/22 11:29 Anion Gap 18.0 (5-19) 09/15/22 11:29 BUN 5 mg/dL (6-20) L 09/15/22 11:29 Creatinine 0.3 mg/dL (0.5-0.9) L 09/15/22 11:29 GFR Calculation 230.1 mL/min (90-130) H 09/15/22 11:29 Glucose 309 mg/dL (65-115) H 09/15/22 11:29 POC Glucose 314 mg/dL (70-110) H 09/15/22 11:51 Calculated Osmolality 285 mOsm/kg (285-295) 09/15/22 11:29 Calcium 7.9 mg/dL (8.5-10.5) L 09/15/22 11:29 Magnesium 1.2 mg/dL (1.7-2.3) L 09/15/22 11:29 Total Bilirubin 0.4 mg/dL (0.15-1.2) 09/15/22 11:29 AST 35 U/L (0-32) H 09/15/22 11:29 ALT 30 U/L (0-33) 09/15/22 11:29 Alkaline Phosphatase 104 U/L (35-105) 09/15/22 11:29 Total Protein 6.1 g/dL (6.6-8.7) L 09/15/22 11:29 Albumin 3.1 g/dL (3.5-5.2) L 09/15/22 11:29 Globulin 3.0 g/dL (1.3-4.6) 09/15/22 11:29 TSH 1.02 uIU/mL (0.27-4.20) 09/15/22 11: Free T4 1.25 ng/dL (0.82-1.77) 09/15/22 11:29 Urine Color Yellow (Yellow) 09/15/22 13:20 Urine Appearance Hazy (CLEAR) A 09/15/22 13:20 Urine pH 5 (5-7) 09/15/22 13:20 Ur Specific [place] 1.015 (1.005-1.030) 09/15/22 13:20 Urine Protein Neg (Negative) 09/15/22 13:20 Urine Glucose (UA) 4+ (Normal) H 09/15/22 13:20 Urine Ketones 2+ (Negative) H 09/15/22 13:20 Urine Blood 2+ (Negative) H 09/15/22 13:20 Urine Nitrate Negative (Negative) 09/15/22 13:20 Urine Bilirubin Neg (Negative) 09/15/22 13:20 Urine Urobilinogen Norm mg/dL (Negative) 09/15/22 13:20 Ur Leukocyte Esterase 2+ (Negative) H 09/15/22 13:20 Urine RBC 10-15 /hpf (0-2) H 09/15/22 13:20 Urine WBC 15-25 /hpf (0-5) H 09/15/22 13:20 Ur Squamous Epith Cells 5-10 /hpf (0-5) H 09/15/22 13:20 Amorphous Sediment Not Reportable 09/15/22 13:20 Urine Bacteria 2+ /hpf (NONE) H 09/15/22 13:20 Urine Opiates Screen Negative ng/mL (Negative) 09/15/22 13:20 Ur Barbiturates Screen Negative ng/mL (Negative) 09/15/22 13:20 Ur Phencyclidine Scrn Negative ng/mL (Negative) 09/15/22 13:20 Ur Amphetamines Screen Negative ng/mL (Negative) 09/15/22 13:20 U Benzodiazepines Scrn Negative ng/mL (Negative) 09/15/22 13:20 Urine Cocaine Screen Negative ng/mL (Negative) 09/15/22 13:20 U Marijuana (THC) Screen Positive ng/mL (Negative) H 09/15/22 13:20 Ethyl Alcohol < 10 mg/dL (0-10) 09/15/22 11:29 Serum Ketones Negative (Negative) 09/15/22 11:29 Discharge Plan Discharge Patient Disposition: Home Clinical Impression: Acute cystitis with hematuria, Seizure-like activity Condition: Stable Prescriptions: New cephalexin 500 mg capsule 500 mg PO TID 7 Days Qty: 21 0RF Keppra 500 mg tablet 500 mg PO BID 14 Days Qty: 28 0RF No Action omeprazole 20 mg Capsule,Delayed Release(Dr/Ec) 20 mg PO QAM fluoxetine 40 mg capsule 40 mg PO QAM atorvastatin 40 mg tablet 40 mg PO BEDTIME metformin 500 mg tablet 500 mg PO Q12H bupropion HCl 150 mg tablet sustained-release 12 hr 150 mg PO QAM Cardizem CD 180 mg capsule,extended release 24hr 180 mg PO QAM valacyclovir 1 gram tablet 1,000 mg PO BID lisinopril 20 mg tablet 20 mg PO QAM ibuprofen 200 mg Tablet 800 mg PO Q6H PRN (Reason: Pain) aripiprazole 5 mg tablet 5 mg PO QAM melatonin 5 mg Tablet 5 mg PO BEDTIME PRN (Reason: Sleep) glucosamine sulfate 2KCl 1,000 mg Capsule 1,000 mg PO BEDTIME (DME) lancets [Lancets, Super Thin] Misc See Rx Instructions .Route Qty: 200 0RF Rx Instructions: As directed (DME) blood-glucose meter [Accu-Chek [place] Plus Meter] Misc See Rx Instructions .Route Qty: 1 0RF Rx Instructions: As directed (DME) Accu-Chek Blessing Plus test strp Strip See Rx Instructions .Route Qty: 100 0RF Rx Instructions: As directed Discharge Orders: Discharge ED (Routine); Ordered 09/15/22 Ordered By: Lamin Puente Referrals: Jolynn Osullivan FNP-C [Primary Care Provider] - Discharge Diet: Usual diet Discharge Activity: Resume usual activity Patient Instructions: Urinary Tract Infection in Women (DC), Recurrent Seizures in Adults (ED), Opioid Safety, Pain Management Activity Restrictions/Additional Instructions: Please follow-up with your primary care provider in 1 to 2 days for referral for neurology and further outpatient management Coding Level of Care Code ED Oracle Erp Architect for Chg Fwd Exam Comprehensive
[2022-09-15 11:39] LABS: Basophils # 0.1 10^3/uL (0.0-0.1); Basophils % 0.9 %; Eosinophils # 0.1 10^3/uL (0.0-0.8); Eosinophils % 0.5 %; Hematocrit 39.3 % (37.0-47.0); Hemoglobin 12.6 g/dL (11.5-15.3); Lymphocytes % 13.7 %; Mean Corpuscular HGB Conc 32.1 g/dL (30.0-36.0); Mean Corpuscular Hemoglobin 30.8 pg (28.0-34.0); Mean Corpuscular Volume 96.1 fl (81-99); Mean Platelet Volume 10.3 fL (7.4-10.4); Monocytes % 6.8 %; Neutrophils # 10.32 10^3/uL (1.8-7.7); Nucleated Red Blood Cells % 0.1 %; Platelet Count 282 10^3/cmm (130-400); Red Blood Count 4.09 10^6/uL (4.1-5.3); Red Cell Distribution Width 14.5 % (12.1-15.1); White Blood Count 14.4 10^3/uL (4.0-10.0)
[2022-09-15 11:42] LABS: Erythrocyte Sedimentation Rate 35 mm/hr (0-15)
[2022-09-15 11:50] LABS: Ketone (Acetest) Serum Negative (Negative)
[2022-09-15] MEDS: lactated ringers 1,000 ML 999 ML IV (11:52)
[2022-09-15 11:53] LABS: Neutrophils % 78.1 %; Slide Review Slide Review Perform
[2022-09-15 11:54] VITALS: BP 143/97; PULSE 88; RESP 20; O2SAT 97
[2022-09-15 11:54] LABS: Glucose Point of Care 314 mg/dL (70-110)
[2022-09-15 12:14] LABS: Alanine Aminotransferase 30 U/L (0-33); Albumin Level 3.1 g/dL (3.5-5.2); Alcohol Level < 10 mg/dL (0-10); Alkaline Phosphatase 104 U/L (35-105); Aspartate Amino Transferase 35 U/L (0-32); Blood Urea Nitrogen 5 mg/dL (6-20); Calcium 7.9 mg/dL (8.5-10.5); Carbon Dioxide 24 mmol/L (22-29); Chloride 95 mmol/L (98-107); Free T4 Free Thyroxine 1.25 ng/dL (0.82-1.77); Glomerular Filtration Rate 230.1 mL/min (90-130); Glucose 309 mg/dL (65-115); Magnesium 1.2 mg/dL (1.7-2.3); Osmolality Calculated 285 mOsm/kg (285-295); Sodium 133 mmol/L (136-145); Thyroid Stimulating Hormone 1.02 uIU/mL (0.27-4.20); Total Bilirubin 0.4 mg/dL (0.15-1.2); Total Protein 6.1 g/dL (6.6-8.7)
--- NOTE | 2022-09-15 12:25 | PC.PHAR ---
pt states she takes care of her own medications-pt states she hasnt taken eliquis 5mg bid for 4-5 months last filled 10/23/21 30d/s states copay is over 100 dollars and states its too expensive-pt states she only takes bupropion er 150mg qam rx bottle has 150mg bid-notes are made in the pharmacy comments
[2022-09-15 12:54] VITALS: PULSE 86; RESP 17; O2SAT 96
[2022-09-15 13:00] VITALS: PULSE 86; O2SAT 96
[2022-09-15 13:42] LABS: Amphetamines Screen Urine Negative (Negative); Barbiturates Screen Urine Negative (Negative); Benzodiazepines Screen Urine Negative (Negative); Cocaine Screen Urine Negative (Negative); Opiate Screen Urine Negative (Negative); PCP Screen Urine Negative (Negative); THC Screen Urine Positive (Negative)
[2022-09-15 13:48] LABS: Protein Urine Neg (Negative); Specific Gravity, Urine 1.015 (1.005-1.030); Urine Appearance Hazy (CLEAR); Urine Color Yellow (Yellow); pH Urine 5 (5-7)
[2022-09-15 13:49] LABS: Add Urine Culture? Yes; Add Urine Microscopic? YES; Bacteria Urine 2+ /hpf; Bilirubin Urine Neg (Negative); Blood Urine 2+ (Negative); Glucose Urine UA 4+ (Normal); Ketones Urine 2+ (Negative); Leukocyte Esterase Urine 2+ (Negative); Nitrate Urine Negative (Negative); Urobilinogen Urine Norm (Negative); WBC Urine 15-25 /hpf (0-5)
[2022-09-15 14:00] VITALS: PULSE 94; O2SAT 94
[2022-09-15] MEDS: cefTRIAXone 1,000 MG in sodium chloride 0.9% (plus) 50 ML 100 MG IV (14:08)
[2022-09-15 14:37] VITALS: PULSE 94; O2SAT 96
== END 2022-09-15 14:39 | disposition home or self-care (01) ==
PROVIDERS: Emergency Provider Student in an Organized Health Care Education/Training Program; PCP Nurse Practitioner Family
DX: R56.9 Unspecified convulsions (principal); N30.01 Acute cystitis with hematuria; Z79.84 Long term (current) use of oral hypoglycemic drugs; I10 Essential (primary) hypertension; E11.9 Type 2 diabetes mellitus without complications; F17.210 Nicotine dependence, cigarettes, uncomplicated
CPT/HCPCS: 36416; 80053; 80306; 80307; 81001; 82009; 82962; 83735; 84439; 84443; 85025; 85651; 87086; 96365; 99284; J0696; J7120